=== PATIENT | male | born 1930 | race Caucasian/White ===

== ENCOUNTER 2019-09-04 15:00 | Inpatient (IN) | payer OTHER ==
[~2019-09-04] VITALS: Ht 162.6 cm; Wt 55.3 kg
[2019-09-04 15:02] VITALS: BP 118/82
[2019-09-04 16:32] LABS: BASOPHILS % (AUTO) 0.4 % (0.0-2.0); EOSINOPHILS # (AUTO) 0.1 K/uL (0-0.4); EOSINOPHILS % (AUTO) 1.4 % (0.0-4.0); HEMATOCRIT 29.4 % (36-52); HEMOGLOBIN 9.4 g/dL (12.0-18.0); LYMPHOCYTES # (AUTO) 1.7 K/uL (2.0-11.5); LYMPHOCYTES % (AUTO) 19.7 % (20.5-51.1); MEAN CORPUSCULAR HEMOGLOBIN 25 pg (27-31); MEAN CORPUSCULAR HGB CONC 32 g/dL (33-37); MEAN CORPUSCULAR VOLUME 78.7 fL (80-94); MONOCYTES # (AUTO) 0.8 K/uL (0.8-1.0); MONOCYTES % (AUTO) 9.3 % (1.7-9.3); NEUTROPHILS # (AUTO) 6.1 K/uL (1.8-7.7); NEUTROPHILS % (AUTO) 69.2 % (42.2-75.2); PLATELET COUNT (AUTO) 227 K/uL (140-450); RED BLOOD CELL COUNT(AUTO) 3.74 MIL/uL (4.20-6.10); RED CELL DISTRIBUTION WIDTH 20.6 % (11.6-13.7); WHITE BLOOD COUNT (AUTO) 8.7 K/uL (4.8-10.8)
[2019-09-04 16:38] LABS: BILIRUBIN,URINE NEGATIVE (NEGATIVE); BLOOD, URINE 3+ (NEGATIVE); COLOR,URINE YELLOW (YELLOW); LEUKOCYTE ESTERASE ,URINE 3+ (NEGATIVE); NITRITE, URINE NEGATIVE (NEGATIVE); UGLUCOSE NEGATIVE (NEGATIVE)
[2019-09-04 16:41] LABS: APPEARANCE,URINE HAZY (CLEAR)
[2019-09-04 16:51] LABS: ANION GAP 13.5 (8-16); CARBON DIOXIDE 26.7 mmol/L (21-32); CHLORIDE 99 mmol/L (98-107); CREATININE 1.9 mg/dL (0.6-1.3); GLUCOSE 126 mg/dL (74-106); POTASSIUM 4.2 mmol/L (3.5-5.1); SODIUM SERUM 135 mmol/L (136-145); UREA NITROGEN, BLOOD 22 mg/dL (7-18)
[2019-09-04 16:53] LABS: RBC,URINE >100 /HPF (0-5)
[2019-09-04 16:57] LABS: ALBUMIN 2.8 g/dL (3.4-5.0); ASPARTATE AMINOTRANSFERASE 27 U/L (15-37); TOTAL BILIRUBIN 0.2 mg/dL (0.0-1.0)
[2019-09-04] MEDS ORDERED: PIPERACILLIN/TAZOBACTAM 3.375 GM in DEXTROSE 5% 50 ML IV ONE (17:15)
[2019-09-04] MEDS ORDERED: PIPERACILLIN/TAZOBACTAM 3.375 GM VIAL IV ONE (17:18)
[2019-09-04] MEDS ORDERED: ACETAMINOPHEN 325 MG TAB PO PRN (17:25)
[2019-09-04] MEDS ORDERED: DOCUSATE SODIUM 100 MG GELCAP PO PRN (17:25)
[2019-09-04] MEDS ORDERED: ONDANSETRON 4 MG/2 ML VIAL IM/IVP PRN (17:25)
[2019-09-04] MEDS ORDERED: OMEP20TA56 PO (18:16)
[2019-09-04] MEDS ORDERED: FINA5TAB1 PO (18:16)
[2019-09-04] MEDS ORDERED: ASCO500T45 PO (18:16)
[2019-09-04] MEDS ORDERED: SIMV20TA1 PO (18:16)
[2019-09-04] MEDS ORDERED: INSU100S5 IJ (18:16)
[2019-09-04] MEDS ORDERED: DOCU-299 PO (18:16)
[2019-09-04] MEDS ORDERED: NACL 0.9% 2,000 ML IV ONE (18:25)
[2019-09-04 19:15] VITALS: BP_SYST 107; BP_SYST 118; BP_DIAS 67; BP_DIAS 90
[2019-09-04] MEDS: NACL 0.9% 1,000 ML IV SCH ×2 (19:15→23:32)
[2019-09-04 20:08] LABS: PROTHROMBIN TIME 9.4 secs (10.8-13.4)
[2019-09-04] MEDS ORDERED: LACTOBACILLUS ACIDOPHILUS PO SCH (21:00)
[2019-09-04] MEDS ORDERED: NON-FORMULARY ITEM (Cranberry Fruit Concentrate (Cranberry) 450 MG) PO SCH (21:00)
[2019-09-04 21:01] LABS: MAGNESIUM 2.1 mg/dL (1.8-2.4); PHOSPHORUS 3.5 mg/dL (2.5-4.9); THYROID STIMULATING HORMONE 3.82 uIU/mL (0.34-3.74)
[2019-09-04] MEDS ORDERED: LACT25CA PO (21:04)
[2019-09-04] MEDS ORDERED: SODI100076 PO (21:04)
[2019-09-04] MEDS ORDERED: CRAN450C PO (21:04)
[2019-09-04] MEDS ORDERED: NITROGLYCERIN 0.4 MG TAB SL PRN (21:05)
[2019-09-04] MEDS ORDERED: cefTRIAXone 1,000 MG VIAL ONE (22:01)
[2019-09-04] MEDS: ASCORBIC ACID 500 MG TAB PO SCH (23:32)
[2019-09-04] MEDS: SIMVASTATIN 20 MG TAB PO SCH (23:32)
[2019-09-04] MEDS: LEVOFLOXACIN 750 MG/D5W PREMIX 150 ML IV SCH (23:35)
[2019-09-04] MEDS: METOPROLOL 25 MG TAB PO SCH (23:40)
[2019-09-05] VITALS: BP_SYST 112; BP_SYST 117; BP_DIAS 64; BP_DIAS 67
[2019-09-05 04:00] VITALS: BP 110/66
[2019-09-05 08:00] VITALS: BP_SYST 121; BP_SYST 130; BP_DIAS 71; BP_DIAS 73
[2019-09-05] MEDS ORDERED: ALBUTEROL SULFATE/IPRATROPIU 3 ML SOL IH PRN ×2 (08:15→08:35)
[2019-09-05 08:20] LABS: MONOCYTES # (AUTO) 0.6 K/uL (0.8-1.0); NEUTROPHILS # (AUTO) 4.7 K/uL (1.8-7.7)
[2019-09-05] MEDS ORDERED: DEXTROSE 50% 50 ML SYR IVP PRN (08:30)
[2019-09-05 08:31] LABS: BASOPHILS % (AUTO) 0.5 % (0.0-2.0); EOSINOPHILS # (AUTO) 0.2 K/uL (0-0.4); EOSINOPHILS % (AUTO) 2.5 % (0.0-4.0); HEMATOCRIT 27.9 % (36-52); LYMPHOCYTES # (AUTO) 1.1 K/uL (2.0-11.5); LYMPHOCYTES % (AUTO) 17.4 % (20.5-51.1); MEAN CORPUSCULAR HGB CONC 32 g/dL (33-37); MEAN CORPUSCULAR VOLUME 78.2 fL (80-94); MONOCYTES % (AUTO) 8.5 % (1.7-9.3); NEUTROPHILS % (AUTO) 71.1 % (42.2-75.2); PLATELET COUNT (AUTO) 203 K/uL (140-450); RED CELL DISTRIBUTION WIDTH 20.2 % (11.6-13.7); WHITE BLOOD COUNT (AUTO) 6.6 K/uL (4.8-10.8)
[2019-09-05] MEDS: LACTOBACILLUS RHAMNOSUS GG 1 EACH CAP PO SCH (08:38)
[2019-09-05] MEDS: SODIUM CHLORIDE 1 GM TAB PO SCH (08:39)
[2019-09-05] MEDS: METOPROLOL 25 MG TAB PO SCH ×2 (08:39→21:00)
[2019-09-05] MEDS: ASCORBIC ACID 500 MG TAB PO SCH (08:39)
[2019-09-05] MEDS: PANTOPRAZOLE 40 MG TABEC PO SCH (08:39)
[2019-09-05] MEDS: FINASTERIDE 5 MG TAB PO SCH (08:40)
[2019-09-05] MEDS: LISINOPRIL 5 MG TAB PO SCH (08:40)
[2019-09-05] MEDS ORDERED: OMEPRAZOLE MAGNESIUM PO SCH (09:00)
[2019-09-05] MEDS ORDERED: ASPIRIN 81 MG TAB.CHEW PO SCH (09:00)
[2019-09-05 09:15] LABS: ANION GAP 10.2 (8-16); CARBON DIOXIDE 28.6 mmol/L (21-32); CHLORIDE 106 mmol/L (98-107); CREATININE 1.8 mg/dL (0.6-1.3); GLUCOSE 104 mg/dL (74-106); POTASSIUM 4.8 mmol/L (3.5-5.1); SODIUM SERUM 140 mmol/L (136-145); UREA NITROGEN, BLOOD 21 mg/dL (7-18)
[2019-09-05 09:27] LABS: MEAN CORPUSCULAR HEMOGLOBIN 25 pg (27-31)
[2019-09-05 09:28] LABS: RED BLOOD CELL COUNT(AUTO) 3.56 MIL/uL (4.20-6.10)
[2019-09-05 09:39] LABS: CHOL/HDL RATIO 4.5 (1-4.5); MAGNESIUM 2.1 mg/dL (1.8-2.4); PHOSPHORUS 3.5 mg/dL (2.5-4.9)
[2019-09-05] MEDS ORDERED: SODIUM FERRIC GLUCONATE 125 MG in NACL 0.9% 100 ML IV SCH (11:00)
[2019-09-05] MEDS: BLOOD GLUCOSE MONITORING 1 DEV DEV FS SCH ×3 (11:09→20:29)
[2019-09-05 12:00] VITALS: BP 130/71
[2019-09-05] MEDS ORDERED: ALBUTEROL SULFATE/IPRATROPIU 3 ML SOL IH SCH (12:00)
[2019-09-05] MEDS: ALBUTEROL SULFATE/IPRATROPIU 3 ML SOL IH SCH ×2 (13:00→21:01)
[2019-09-05] MEDS: metroNIDAZOLE 500 MG/NS PREMIX 100 ML IV SCH ×2 (13:13→20:30)
[2019-09-05 16:00] VITALS: BP 109/63
[2019-09-05] MEDS: INSULIN LISPRO SLIDING SCALE 100 UNITS/ML VIAL SUBQ PRN (16:56)
[2019-09-05] MEDS: NACL 0.9% 1,000 ML IV SCH ×2 (17:02→23:55)
[2019-09-05 20:00] VITALS: BP 112/59
[2019-09-05] MEDS: SIMVASTATIN 20 MG TAB PO SCH (20:31)
[2019-09-06] VITALS: BP 100/60
[2019-09-06 04:00] VITALS: BP 105/60
[2019-09-06] MEDS: metroNIDAZOLE 500 MG/NS PREMIX 100 ML IV SCH ×3 (04:16→22:11)
[2019-09-06] MEDS: NACL 0.9% 1,000 ML IV SCH (04:17)
[2019-09-06] MEDS: BLOOD GLUCOSE MONITORING 1 DEV DEV FS SCH ×4 (06:16→21:00)
[2019-09-06 06:17] LABS: BASOPHILS % (AUTO) 0.4 % (0.0-2.0); EOSINOPHILS # (AUTO) 0.2 K/uL (0-0.4); EOSINOPHILS % (AUTO) 2.2 % (0.0-4.0); HEMATOCRIT 26.1 % (36-52); HEMOGLOBIN 8.4 g/dL (12.0-18.0); LYMPHOCYTES # (AUTO) 1.6 K/uL (2.0-11.5); LYMPHOCYTES % (AUTO) 20.8 % (20.5-51.1); MEAN CORPUSCULAR HEMOGLOBIN 25 pg (27-31); MEAN CORPUSCULAR HGB CONC 32 g/dL (33-37); MEAN CORPUSCULAR VOLUME 78.7 fL (80-94); MONOCYTES # (AUTO) 0.7 K/uL (0.8-1.0); MONOCYTES % (AUTO) 8.9 % (1.7-9.3); NEUTROPHILS # (AUTO) 5.1 K/uL (1.8-7.7); NEUTROPHILS % (AUTO) 67.7 % (42.2-75.2); PLATELET COUNT (AUTO) 207 K/uL (140-450); RED BLOOD CELL COUNT(AUTO) 3.32 MIL/uL (4.20-6.10); RED CELL DISTRIBUTION WIDTH 20.5 % (11.6-13.7); WHITE BLOOD COUNT (AUTO) 7.6 K/uL (4.8-10.8)
[2019-09-06 06:28] LABS: MAGNESIUM 1.8 mg/dL (1.8-2.4); PHOSPHORUS 3.3 mg/dL (2.5-4.9)
[2019-09-06 06:34] LABS: ANION GAP 10.9 (8-16); CARBON DIOXIDE 26.9 mmol/L (21-32); CHLORIDE 106 mmol/L (98-107); CREATININE 1.5 mg/dL (0.6-1.3); GLUCOSE 117 mg/dL (74-106); POTASSIUM 3.8 mmol/L (3.5-5.1); SODIUM SERUM 140 mmol/L (136-145); UREA NITROGEN, BLOOD 20 mg/dL (7-18)
[2019-09-06 07:07] LABS: FOLIC ACID 5.9 ng/mL (>3.0)
[2019-09-06] MEDS: ALBUTEROL SULFATE/IPRATROPIU 3 ML SOL IH SCH ×3 (07:15→19:35)
[2019-09-06 08:00] VITALS: BP 133/65
[2019-09-06] MEDS: FERROUS SULFATE 325 MG TABEC PO SCH (08:00)
[2019-09-06] MEDS: FINASTERIDE 5 MG TAB PO SCH (09:00)
[2019-09-06] MEDS: SODIUM CHLORIDE 1 GM TAB PO SCH (09:00)
[2019-09-06] MEDS: LISINOPRIL 5 MG TAB PO SCH (09:00)
[2019-09-06] MEDS: METOPROLOL 25 MG TAB PO SCH ×2 (09:00→21:00)
[2019-09-06] MEDS: LACTOBACILLUS RHAMNOSUS GG 1 EACH CAP PO SCH (09:00)
[2019-09-06] MEDS: ASCORBIC ACID 500 MG TAB PO SCH (09:00)
[2019-09-06] MEDS: PANTOPRAZOLE 40 MG TABEC PO SCH (09:00)
[2019-09-06 12:00] VITALS: BP 118/69
[2019-09-06 16:00] VITALS: BP 123/70
[2019-09-06 20:00] VITALS: BP 100/58
[2019-09-06] MEDS: INSULIN LISPRO SLIDING SCALE 100 UNITS/ML VIAL SUBQ PRN (22:11)
[2019-09-06] MEDS: SIMVASTATIN 20 MG TAB PO SCH (22:12)
[2019-09-06] MEDS: DEXT 5% /NACL 0.9% 1,000 ML IV SCH (22:19)
[2019-09-06] MEDS: LEVOFLOXACIN 750 MG/D5W PREMIX 150 ML IV SCH (23:10)
[2019-09-07] VITALS: BP 112/62
[2019-09-07] MEDS: DEXT 5% /NACL 0.9% 1,000 ML IV SCH ×2 (01:59→17:39)
[2019-09-07 04:00] VITALS: BP 119/76
[2019-09-07] MEDS: metroNIDAZOLE 500 MG/NS PREMIX 100 ML IV SCH ×3 (04:10→20:28)
[2019-09-07] MEDS: BLOOD GLUCOSE MONITORING 1 DEV DEV FS SCH ×4 (06:06→20:28)
[2019-09-07 06:20] LABS: ANION GAP 13.5 (8-16); CARBON DIOXIDE 26.5 mmol/L (21-32); CHLORIDE 104 mmol/L (98-107); CREATININE 1.5 mg/dL (0.6-1.3); GLUCOSE 115 mg/dL (74-106); SODIUM SERUM 140 mmol/L (136-145); UREA NITROGEN, BLOOD 18 mg/dL (7-18)
[2019-09-07 06:21] LABS: MAGNESIUM 1.7 mg/dL (1.8-2.4)
[2019-09-07 06:29] LABS: BASOPHILS # (AUTO) 0.1 K/uL (0.00-0.22); BASOPHILS % (AUTO) 0.7 % (0.0-2.0); EOSINOPHILS # (AUTO) 0.2 K/uL (0-0.4); EOSINOPHILS % (AUTO) 2.1 % (0.0-4.0); HEMATOCRIT 26.8 % (36-52); HEMOGLOBIN 8.5 g/dL (12.0-18.0); LYMPHOCYTES # (AUTO) 1.4 K/uL (2.0-11.5); LYMPHOCYTES % (AUTO) 17.1 % (20.5-51.1); MEAN CORPUSCULAR HEMOGLOBIN 25 pg (27-31); MEAN CORPUSCULAR HGB CONC 32 g/dL (33-37); MEAN CORPUSCULAR VOLUME 79.1 fL (80-94); MONOCYTES # (AUTO) 0.9 K/uL (0.8-1.0); MONOCYTES % (AUTO) 10.3 % (1.7-9.3); NEUTROPHILS # (AUTO) 5.9 K/uL (1.8-7.7); NEUTROPHILS % (AUTO) 69.8 % (42.2-75.2); PLATELET COUNT (AUTO) 230 K/uL (140-450); RED BLOOD CELL COUNT(AUTO) 3.38 MIL/uL (4.20-6.10); RED CELL DISTRIBUTION WIDTH 20.5 % (11.6-13.7); WHITE BLOOD COUNT (AUTO) 8.4 K/uL (4.8-10.8)
[2019-09-07] MEDS: ALBUTEROL SULFATE/IPRATROPIU 3 ML SOL IH SCH ×3 (07:49→20:38)
[2019-09-07 08:00] VITALS: BP 110/74
[2019-09-07] MEDS: FERROUS SULFATE 325 MG TABEC PO SCH (08:25)
[2019-09-07] MEDS: ASCORBIC ACID 500 MG TAB PO SCH (08:26)
[2019-09-07] MEDS: LACTOBACILLUS RHAMNOSUS GG 1 EACH CAP PO SCH (08:26)
[2019-09-07] MEDS: SODIUM CHLORIDE 1 GM TAB PO SCH (08:26)
[2019-09-07] MEDS: PANTOPRAZOLE 40 MG TABEC PO SCH (08:26)
[2019-09-07] MEDS: METOPROLOL 25 MG TAB PO SCH ×2 (08:27→20:28)
[2019-09-07] MEDS: LISINOPRIL 5 MG TAB PO SCH (08:27)
[2019-09-07] MEDS: FINASTERIDE 5 MG TAB PO SCH (08:28)
[2019-09-07] MEDS: INSULIN LISPRO SLIDING SCALE 100 UNITS/ML VIAL SUBQ PRN ×3 (11:59→20:34)
[2019-09-07 12:00] VITALS: BP 114/72
[2019-09-07 16:00] VITALS: BP 101/57
[2019-09-07] MEDS: SIMVASTATIN 20 MG TAB PO SCH (20:28)
[2019-09-08] VITALS: BP 129/76
[2019-09-08] MEDS: metroNIDAZOLE 500 MG/NS PREMIX 100 ML IV SCH ×3 (04:04→20:40)
[2019-09-08] MEDS: BLOOD GLUCOSE MONITORING 1 DEV DEV FS SCH ×4 (06:15→20:37)
[2019-09-08] MEDS: ALBUTEROL SULFATE/IPRATROPIU 3 ML SOL IH SCH ×3 (07:09→19:57)
[2019-09-08 08:00] VITALS: BP 96/53
[2019-09-08 08:02] LABS: BASOPHILS % (AUTO) 0.3 % (0.0-2.0); EOSINOPHILS # (AUTO) 0.2 K/uL (0-0.4); EOSINOPHILS % (AUTO) 1.7 % (0.0-4.0); HEMOGLOBIN 8.6 g/dL (12.0-18.0); LYMPHOCYTES # (AUTO) 2.1 K/uL (2.0-11.5); LYMPHOCYTES % (AUTO) 21.9 % (20.5-51.1); MEAN CORPUSCULAR HEMOGLOBIN 26 pg (27-31); MEAN CORPUSCULAR HGB CONC 32 g/dL (33-37); MONOCYTES # (AUTO) 0.9 K/uL (0.8-1.0); MONOCYTES % (AUTO) 9.6 % (1.7-9.3); NEUTROPHILS # (AUTO) 6.2 K/uL (1.8-7.7); NEUTROPHILS % (AUTO) 66.5 % (42.2-75.2); PLATELET COUNT (AUTO) 210 K/uL (140-450); RED BLOOD CELL COUNT(AUTO) 3.37 MIL/uL (4.20-6.10); RED CELL DISTRIBUTION WIDTH 20.7 % (11.6-13.7); WHITE BLOOD COUNT (AUTO) 9.4 K/uL (4.8-10.8)
[2019-09-08] MEDS: FERROUS SULFATE 325 MG TABEC PO SCH (08:09)
[2019-09-08] MEDS: LACTOBACILLUS RHAMNOSUS GG 1 EACH CAP PO SCH (08:10)
[2019-09-08] MEDS: FINASTERIDE 5 MG TAB PO SCH (08:10)
[2019-09-08] MEDS: SODIUM CHLORIDE 1 GM TAB PO SCH (08:11)
[2019-09-08] MEDS: PANTOPRAZOLE 40 MG TABEC PO SCH (08:11)
[2019-09-08] MEDS: ASCORBIC ACID 500 MG TAB PO SCH (08:12)
[2019-09-08] MEDS: LISINOPRIL 5 MG TAB PO SCH (08:14)
[2019-09-08] MEDS: METOPROLOL 25 MG TAB PO SCH ×2 (08:14→20:38)
[2019-09-08 08:25] LABS: MAGNESIUM 1.8 mg/dL (1.8-2.4); PHOSPHORUS 3.1 mg/dL (2.5-4.9)
[2019-09-08 08:38] LABS: ANION GAP 12.1 (8-16); CARBON DIOXIDE 27.3 mmol/L (21-32); CHLORIDE 106 mmol/L (98-107); CREATININE 1.7 mg/dL (0.6-1.3); GLUCOSE 145 mg/dL (74-106); POTASSIUM 4.4 mmol/L (3.5-5.1); SODIUM SERUM 141 mmol/L (136-145); UREA NITROGEN, BLOOD 22 mg/dL (7-18)
[2019-09-08] MEDS: DEXT 5% /NACL 0.9% 1,000 ML IV SCH (12:11)
[2019-09-08 16:00] VITALS: BP 102/56
[2019-09-08] MEDS: SIMVASTATIN 20 MG TAB PO SCH (20:37)
[2019-09-08] MEDS: LEVOFLOXACIN 750 MG/D5W PREMIX 150 ML IV SCH (21:41)
[2019-09-09] VITALS: BP 101/64
[2019-09-09] MEDS: DEXT 5% /NACL 0.9% 1,000 ML IV SCH (03:59)
[2019-09-09] MEDS: metroNIDAZOLE 500 MG/NS PREMIX 100 ML IV SCH (04:37)
[2019-09-09] MEDS: BLOOD GLUCOSE MONITORING 1 DEV DEV FS SCH ×2 (06:09→11:30)
[2019-09-09 06:44] LABS: CHLORIDE 105 mmol/L (98-107); CREATININE 1.5 mg/dL (0.6-1.3); GLUCOSE 122 mg/dL (74-106); SODIUM SERUM 140 mmol/L (136-145); UREA NITROGEN, BLOOD 18 mg/dL (7-18)
[2019-09-09 06:50] LABS: MAGNESIUM 1.6 mg/dL (1.8-2.4); PHOSPHORUS 3.2 mg/dL (2.5-4.9)
[2019-09-09 06:54] LABS: BASOPHILS # (AUTO) 0.1 K/uL (0.00-0.22); BASOPHILS % (AUTO) 0.5 % (0.0-2.0); EOSINOPHILS # (AUTO) 0.2 K/uL (0-0.4); EOSINOPHILS % (AUTO) 1.6 % (0.0-4.0); HEMOGLOBIN 8.5 g/dL (12.0-18.0); LYMPHOCYTES # (AUTO) 1.3 K/uL (2.0-11.5); LYMPHOCYTES % (AUTO) 12.8 % (20.5-51.1); MEAN CORPUSCULAR HEMOGLOBIN 26 pg (27-31); MEAN CORPUSCULAR HGB CONC 33 g/dL (33-37); MEAN CORPUSCULAR VOLUME 80.1 fL (80-94); MONOCYTES # (AUTO) 1.1 K/uL (0.8-1.0); MONOCYTES % (AUTO) 10.7 % (1.7-9.3); NEUTROPHILS # (AUTO) 7.6 K/uL (1.8-7.7); NEUTROPHILS % (AUTO) 74.4 % (42.2-75.2); PLATELET COUNT (AUTO) 216 K/uL (140-450); RED BLOOD CELL COUNT(AUTO) 3.24 MIL/uL (4.20-6.10); RED CELL DISTRIBUTION WIDTH 20.7 % (11.6-13.7); WHITE BLOOD COUNT (AUTO) 10.2 K/uL (4.8-10.8)
[2019-09-09] MEDS: ALBUTEROL SULFATE/IPRATROPIU 3 ML SOL IH SCH (07:35)
[2019-09-09 08:00] VITALS: BP 126/75
[2019-09-09] MEDS ORDERED: MAGNESIUM OXIDE 400 MG TAB PO SCH (09:00)
[2019-09-09] MEDS ORDERED: AMOX-999 PO (09:12)
[2019-09-09] MEDS ORDERED: LACT10CA PO (09:12)
[2019-09-09] MEDS ORDERED: FER325 PO (09:12)
[2019-09-09] MEDS ORDERED: HEPA500056 SUBQ (09:17)
[2019-09-09] MEDS: LACTOBACILLUS RHAMNOSUS GG 1 EACH CAP PO SCH (09:55)
[2019-09-09] MEDS: SODIUM CHLORIDE 1 GM TAB PO SCH (09:55)
[2019-09-09] MEDS: LISINOPRIL 5 MG TAB PO SCH (09:56)
[2019-09-09] MEDS: FINASTERIDE 5 MG TAB PO SCH (09:56)
[2019-09-09] MEDS: METOPROLOL 25 MG TAB PO SCH (09:57)
[2019-09-09] MEDS: PANTOPRAZOLE 40 MG TABEC PO SCH (09:57)
[2019-09-09] MEDS: ASCORBIC ACID 500 MG TAB PO SCH (09:57)
[2019-09-09] MEDS: FERROUS SULFATE 325 MG TABEC PO SCH (10:06)
== END 2019-09-09 12:40 | DRG 177 ==
LOC: MED 15:00 → MTU 17:23
PROVIDERS: ADMIT General Practice; ATTEND General Practice
DX: J69.0 Pneumonitis due to inhalation of food and vomit (principal); N17.0 Acute kidney failure with tubular necrosis; G93.41 Metabolic encephalopathy; R65.20 Severe sepsis without septic shock; E44.0 Moderate protein-calorie malnutrition; N12 Tubulo-interstitial nephritis, not specified as acute or chronic; E87.1 Hypo-osmolality and hyponatremia; D50.9 Iron deficiency anemia, unspecified; E11.22 Type 2 diabetes mellitus with diabetic chronic kidney disease; E78.5 Hyperlipidemia, unspecified; I12.9 Hypertensive chronic kidney disease with stage 1 through stage 4 chronic kidney disease, or unspecified chronic kidney disease; I48.91 Unspecified atrial fibrillation; D63.0 Anemia in neoplastic disease; K21.9 Gastro-esophageal reflux disease without esophagitis; Y83.8 Other surgical procedures as the cause of abnormal reaction of the patient, or of later complication, without mention of misadventure at the time of the procedure; N99.520 Hemorrhage of incontinent external stoma of urinary tract; N18.9 Chronic kidney disease, unspecified; Z66 Do not resuscitate; Z85.51 Personal history of malignant neoplasm of bladder; Z88.6 Allergy status to analgesic agent; Z68.20 Body mass index [BMI] 20.0-20.9, adult; Z79.899 Other long term (current) drug therapy
CPT/HCPCS: 36415; 36600; 70450; 71045; 76770; 80048; 80053; 81001; 82140; 82150; 82272; 82607; 82728; 82746; 82803; 82948; 83036; 83540; 83605; 83690; 83735; 83880; 84100; 84134; 84443; 84484; 85025; 85045; 85610; 85730; 87040; 87081; 87086; 92610; 93005; 93925; 93970; 94640; 96365; 97110; 97112; 97116; 97161-GP; 97530; 99285; J0696; J1644; J1815; J1956; J2543; J2916; J3490; J7030; J7042; J7060; Q0092

== ENCOUNTER 2019-09-15 18:11 | Inpatient (IN) | payer OTHER ==
[~2019-09-15] VITALS: Ht 175.3 cm; Wt 81.6 kg
[~2019-09-15 18:11] MED LIST: AMOX-999 PO; ASCO500T45 PO; CRAN450C PO; DOCU-299 PO; FER325 PO; FINA5TAB1 PO; INSU100S5 IJ; LACT10CA PO; LACT25CA PO; OMEP20TA56 PO; SIMV20TA1 PO; SODI100076 PO
[2019-09-15 18:13] VITALS: BP 124/85
--- NOTE | 2019-09-15 18:42 | NUR ---
BIBA ACLS FROM [facility] NOTED FOR CHANGE IN LOC THIS AM .PT RESPONSE TO VOICE , SCE , CBS BLF , FLAT SOFT NABS , DRAIN NOTED WITH DRAIN BAG WITH STRAW COLORED DRAIN . PMHX BLADDER CA , DM .
--- NOTE | 2019-09-15 19:03 | NUR ---
XRAY AT BEDSIDE.
--- NOTE | 2019-09-15 19:23 | NUR ---
gave report to chary sesay.
--- NOTE | 2019-09-15 19:25 | NUR ---
RECIEVED REPORT FROM ROBLES DAILY. ASSUMED CARE OF PATIENT AT THIS TIME. PT LAYING IN BED SUPINE. RR EVEN AND UNLABORED. O2 SAT MAINTAINED AT 98% RA. BED IN LOWEST POSITION. SAFETY MEASURES IN PLACE. WILL CONTINUE TO MONITOR.
--- NOTE | 2019-09-15 19:37 | NUR ---
PT TAKEN TO CT VIA [facility].
--- NOTE | 2019-09-15 19:40 | NUR ---
URINE SAMPLE COLLECTED FROM PTS NEPHROSTOMY BAG
--- NOTE | 2019-09-15 19:47 | NUR ---
PT RETURNED FROM CT.
--- NOTE | 2019-09-15 20:16 | NUR ---
BLOOD DRAWN AND GIVEN TO LAB.
[2019-09-15 20:23] LABS: BASOPHILS % (AUTO) 0.5 % (0.0-2.0); EOSINOPHILS # (AUTO) 0.1 K/uL (0-0.4); EOSINOPHILS % (AUTO) 1.8 % (0.0-4.0); HEMATOCRIT 29.8 % (36-52); HEMOGLOBIN 9.5 g/dL (12.0-18.0); LYMPHOCYTES # (AUTO) 2.2 K/uL (2.0-11.5); LYMPHOCYTES % (AUTO) 29.5 % (20.5-51.1); MEAN CORPUSCULAR HEMOGLOBIN 26 pg (27-31); MEAN CORPUSCULAR HGB CONC 32 g/dL (33-37); MEAN CORPUSCULAR VOLUME 82.3 fL (80-94); MONOCYTES # (AUTO) 0.8 K/uL (0.8-1.0); MONOCYTES % (AUTO) 10.1 % (1.7-9.3); NEUTROPHILS # (AUTO) 4.4 K/uL (1.8-7.7); NEUTROPHILS % (AUTO) 58.1 % (42.2-75.2); PLATELET COUNT (AUTO) 244 K/uL (140-450); RED BLOOD CELL COUNT(AUTO) 3.62 MIL/uL (4.20-6.10); RED CELL DISTRIBUTION WIDTH 22.1 % (11.6-13.7); WHITE BLOOD COUNT (AUTO) 7.6 K/uL (4.8-10.8)
--- NOTE | 2019-09-15 20:36 | NUR ---
PT RESTING IN POSITION OF COMFORT. BED LOW AND LOCKED, 2 SIDERAILS UP.VSS . RR EVEN AND UNLABORED. WILL CONTINUE TO MONITOR.
[2019-09-15 20:37] LABS: ALBUMIN 2.7 g/dL (3.4-5.0); ANION GAP 9.5 (8-16); ASPARTATE AMINOTRANSFERASE 32 U/L (15-37); CARBON DIOXIDE 30.8 mmol/L (21-32); CHLORIDE 100 mmol/L (98-107); CREATININE 1.6 mg/dL (0.6-1.3); GLUCOSE 123 mg/dL (74-106); POTASSIUM 4.3 mmol/L (3.5-5.1); SODIUM SERUM 136 mmol/L (136-145); TOTAL BILIRUBIN 0.2 mg/dL (0.0-1.0); UREA NITROGEN, BLOOD 22 mg/dL (7-18)
[2019-09-15 20:39] LABS: ACETAMINOPHEN < 0.5 ug/ml (10-30); SALICYLATE < 2.8 mg/dL (2.8-20.0)
--- NOTE | 2019-09-15 21:20 | NUR ---
PT'S SON PHONED AND ASKED FOR AN UPDATE
[2019-09-15 21:36] LABS: APPEARANCE,URINE HAZY (CLEAR); BILIRUBIN,URINE NEGATIVE (NEGATIVE); BLOOD, URINE 3+ (NEGATIVE); COLOR,URINE YELLOW (YELLOW); LEUKOCYTE ESTERASE ,URINE 3+ (NEGATIVE); NITRITE, URINE NEGATIVE (NEGATIVE); UGLUCOSE NEGATIVE (NEGATIVE)
[2019-09-15 21:45] LABS: BARBITURATE, URINE NEGATIVE ng/ml (NEG <=200); BENZODIAZEPINE, URINE NEGATIVE ng/mL (NEG <=200); CANNABINOID, URINE NEGATIVE ng/mL (NEG <=50); COCAINE, URINE NEGATIVE ng/mL (NEG <=300); OPIATE, URINE NEGATIVE ng/mL (NEG <=2000); PHENCYCLIDINE SCREEN,URINE NEGATIVE ng/mL (NEG <=25)
[2019-09-15] MEDS ORDERED: cefTRIAXone 2,000 MG in DEXTROSE 5% 100 ML IV ONE (21:45)
--- NOTE | 2019-09-15 21:47 | NUR ---
PHONED PT'S SON (JULIA) AND INFORMED HIM THAT THE PT IS BEING ADMITTED TO THE HOSPITAL
[2019-09-15 21:49] LABS: RBC,URINE 80-100 /HPF (0-5); WBC,URINE 60-80 /HPF (0-5)
[2019-09-15] MEDS ORDERED: cefTRIAXone 2,000 MG VIAL ONE (21:51)
[2019-09-15] MEDS ORDERED: ONDANSETRON 4 MG/2 ML VIAL IVP PRN (22:25)
[2019-09-15] MEDS ORDERED: ACETAMINOPHEN 325 MG TAB PO PRN (22:25)
--- NOTE | 2019-09-15 22:31 | NUR ---
RIGHT NEPHROSTOMY BAG DRAINED--500CC OF YELLOW OUTPUT NOTED. LEFT NEPHROSTOMY BAG IS EMPTY AT THIS TIME, SO NOTHING TO DRAIN. PT RESTING IN POSITION OF COMFORT. BED LOW AND LOCKED. 2 SIDERAILS UP. VSS . WILL CONTINUE TO MONITOR.
[2019-09-15 23:15] VITALS: BP 123/77
--- NOTE | 2019-09-15 23:15 | NUR ---
Patient will be admitted to care of . Admited to [facility]. Will go to room 121A. Belongings list completed. Report GIVEN to ROBLES SILVA. TRANSFER OF CARE AT THIS TIME.
--- NOTE | 2019-09-15 23:15 | NUR ---
PATIENT ARRIVED FROM ED VIA GURNEY. ENDORSED BY ED NURSE. PATIENT AOX2. NON-AMBULATORY. WITH G20 IV ON L WRIST. NEPHROSTOMY TUBE PRESENT ON LEFT AND RIGHT SIDE. VITAL SIGNS ARE STABLE. SKIN IS INTACT. SKIN WARM AND DRY. LUNG SOUNDS ARE CLEAR. RESPIRATIONS EVEN AND UNLABORED. ABDOMINAL SOUNDS PRESENT ON ALL QUADRANTS. DENIES PAIN AT THIS TIME. ORIENTED TO ROOM AND PROCEDURES. MRSA SWAB COLLECTED. BELONGINGS KEPT AT BEDSIDE. FALL AND SAFETY PRECAUTIONS IN PLACE. BED IN LOW POSITION, SIDE RAILS RAISED, BED ALARM ON, CALL LIGHT WITHIN REACH. KEPT COMFORTABLE. PLAN OF CARE DISCUSSED. WILL CONTINUE TO MONITOR.
--- NOTE | 2019-09-15 23:40 | NUR ---
CALLED [facility] AND SPOKE WITH JAY ([employer] FEEDER). OBTAINED PATIENT HISTORY AND BACKGROUND.
[2019-09-16] MEDS: NACL 0.9% 1,000 ML IV SCH ×4 (00:01→23:48)
[2019-09-16 00:14] LABS: FREE T4 (FREE THYROXINE) 0.93 ng/dL (0.76-1.46); MAGNESIUM 2.1 mg/dL (1.8-2.4); PHOSPHORUS 3.7 mg/dL (2.5-4.9); THYROID STIMULATING HORMONE 4.31 uIU/mL (0.34-3.74)
[2019-09-16 00:19] LABS: PROTHROMBIN TIME 9.5 secs (10.8-13.4)
[2019-09-16] MEDS ORDERED: LEVOFLOXACIN 750 MG/D5W PREMIX 150 ML IV SCH (01:20)
[2019-09-16] MEDS ORDERED: FERR325E14 PO (01:54)
[2019-09-16] MEDS ORDERED: LACT25CA PO (01:54)
[2019-09-16] MEDS ORDERED: FINA5TAB1 PO (01:54)
--- NOTE | 2019-09-16 02:11 | NUR ---
ROUNDS DONE. PATIENT IN BED SLEEPING. NO SIGNS OF DISTRESS NOTED. IVF INFUSING WELL. SAFETY MEASURES IN PLACE. BED IN LOW POSITION, SIDE RAILS RAISED, BED ALARM ON, CALL LIGHT WITHIN REACH. KEPT COMFORTABLE. WILL CONTINUE TO MONITOR.
[2019-09-16] MEDS ORDERED: DEXTROSE 50% 50 ML SYR IVP PRN (02:35)
--- NOTE | 2019-09-16 04:03 | NUR ---
PATIENT LYING IN BED SLEEPING. NO SIGNS OF DISTRESS NOTED. IVF INFUSING WELL. SAFETY MEASURES IN PLACE. WILL CONTINUE TO MONITOR.
[2019-09-16] MEDS: BLOOD GLUCOSE MONITORING 1 DEV DEV FS SCH ×4 (06:10→21:13)
--- NOTE | 2019-09-16 07:15 | NUR ---
RECEIVED REPORT FROM DAY SHIFT VIVIAN. PT RESTING IN BED, AOX2, SPEAKS ARABIC AND VERY LITTLE IRISH, WHEELCHAIR BOUND. DISCUSSED PLAN OF CARE AND PT VERBALIZED UNDERSTANDING. IV SITE ON LEFT WRIST #20G RUNNING NS @ 100ML/HR. LEFT AND RIGHT NEPHRO TUBE. NO S/S OF RESPIRATORY DISTRESS OR DISCOMFORT NOTED AT THIS TIME. WILL CONTINUE TO MONITOR.
--- NOTE | 2019-09-16 07:15 | NUR ---
ENDORSED PATIENT TO DAY SHIFT NURSE. PLAN OF CARE DISCUSSED. PATIENT IN BED RESTING. NO SIGNS AND SYMPTOMS OF DISTRESS NOTED. PATIENT IN STABLE CONDITION.
[2019-09-16 07:23] LABS: BASOPHILS % (AUTO) 0.4 % (0.0-2.0); EOSINOPHILS # (AUTO) 0.1 K/uL (0-0.4); EOSINOPHILS % (AUTO) 1.3 % (0.0-4.0); HEMATOCRIT 29.7 % (36-52); HEMOGLOBIN 9.8 g/dL (12.0-18.0); LYMPHOCYTES # (AUTO) 1.1 K/uL (2.0-11.5); LYMPHOCYTES % (AUTO) 11.5 % (20.5-51.1); MEAN CORPUSCULAR HEMOGLOBIN 27 pg (27-31); MEAN CORPUSCULAR HGB CONC 33 g/dL (33-37); MEAN CORPUSCULAR VOLUME 82.1 fL (80-94); MONOCYTES # (AUTO) 0.6 K/uL (0.8-1.0); NEUTROPHILS # (AUTO) 8.1 K/uL (1.8-7.7); NEUTROPHILS % (AUTO) 80.8 % (42.2-75.2); PLATELET COUNT (AUTO) 238 K/uL (140-450); RED BLOOD CELL COUNT(AUTO) 3.62 MIL/uL (4.20-6.10); RED CELL DISTRIBUTION WIDTH 21.8 % (11.6-13.7)
[2019-09-16 07:28] LABS: ANION GAP 11.3 (8-16); CARBON DIOXIDE 29.6 mmol/L (21-32); CHLORIDE 102 mmol/L (98-107); CREATININE 1.6 mg/dL (0.6-1.3); GLUCOSE 125 mg/dL (74-106); POTASSIUM 4.9 mmol/L (3.5-5.1); SODIUM SERUM 138 mmol/L (136-145); UREA NITROGEN, BLOOD 20 mg/dL (7-18)
[2019-09-16 07:40] LABS: MAGNESIUM 2.1 mg/dL (1.8-2.4); PHOSPHORUS 3.2 mg/dL (2.5-4.9)
[2019-09-16 08:00] VITALS: BP 110/72
[2019-09-16] MEDS ORDERED: NON-FORMULARY ITEM (Cranberry Fruit Concentrate (Cranberry) 450 MG) PO SCH (09:00)
[2019-09-16] MEDS ORDERED: LACTOBACILLUS ACIDOPHILUS PO SCH (09:00)
[2019-09-16] MEDS ORDERED: OMEPRAZOLE MAGNESIUM PO SCH (09:00)
--- NOTE | 2019-09-16 09:42 | NUR ---
PATIENT HAS BEEN SCREENED AND CATEGORIZED MODERATE NUTRITION RISK. PATIENT WILL BE SEEN WITHIN 3-5 DAYS OF ADMISSION. 09/18/2019-09/20/[address]
[2019-09-16] MEDS: LEVOFLOXACIN 750 MG/D5W PREMIX 150 ML IV SCH (10:01)
[2019-09-16] MEDS: DOCUSATE SODIUM 100 MG GELCAP PO SCH ×2 (10:01→21:04)
[2019-09-16] MEDS: LACTOBACILLUS RHAMNOSUS GG 1 EACH CAP PO SCH (10:02)
[2019-09-16] MEDS: ASCORBIC ACID 500 MG TAB PO SCH ×2 (10:02→21:04)
[2019-09-16] MEDS: FERROUS SULFATE 325 MG TABEC PO SCH (10:02)
[2019-09-16] MEDS: SODIUM CHLORIDE 1 GM TAB PO SCH (10:03)
[2019-09-16] MEDS: PANTOPRAZOLE 40 MG TABEC PO SCH (10:03)
[2019-09-16] MEDS: FINASTERIDE 5 MG TAB PO SCH (10:04)
--- NOTE | 2019-09-16 10:04 | NUR ---
SCHEDULED MEDICATIONS GIVEN. PT REFUSED HEPARIN SUBQ DR JOSEPHINE HUBER AWARE. PT TOLERATED MEDICATIONS WELL. NO S/S OF RESPIRATORY DISTRESS OR DISCOMFORT NOTED AT THIS TIME. WILL CONTINUE TO MONITOR.
[2019-09-16] MEDS ORDERED: MECLIZINE 25 MG TAB PO PRN (10:10)
--- NOTE | 2019-09-16 11:30 | NUR ---
BLOOD GLUCOSE 128- NO INSULIN COVERAGE NEEDED. NO S/S OF RESPIRATORY DISTRESS OR DISCOMFORT NOTED AT THIS TIME. WILL CONTINUE TO MONITOR.
--- NOTE | 2019-09-16 13:00 | NUR ---
PT RESTING IN BED SLEEPING. NO S/S OF RESPIRATORY DISTRESS OR DISCOMFORT NOTED AT THIS TIME. WILL CONTINUE TO MONITOR.
--- NOTE | 2019-09-16 14:00 | NUR ---
ORTHOSTATIC BP UNABLE TO COMPLETE DUE TO PT GENERALIZED WEAKNESS.
[2019-09-16 16:00] VITALS: BP 102/72
--- NOTE | 2019-09-16 16:30 | NUR ---
BLOOD GLUCOSE 152
--- NOTE | 2019-09-16 17:00 | NUR ---
PT REFUSING INSULIN COVERAGE STATING "NO" AND MOVING ARM AWAY. INSULIN COVERAGE NOT GIVEN.
--- NOTE | 2019-09-16 18:55 | NUR ---
NEPHRO TUBE OUTPUT: LEFT 30ML/ RIGHT 90ML
--- NOTE | 2019-09-16 19:15 | NUR ---
RECEIVED REPORT FROM DAY SHIFT NURSE. DISCUSSED PLAN OF CARE. PATIENT LYING IN BED RESTING WITH HOB SLIGHTLY ELEVATED. NOTED WITH GENERALIZED WEAKNESS. RESPIRATIONS EVEN AND UNLABORED. SKIN IS WARM AND DRY. IVF PATENT AND INFUSING WELL. BILATERAL NEPHROSTOMY TUBE IN PLACE AND DRAINING WELL. NO SIGNS OF INFECTION NOTED. NO SIGNS AND SYMPTOMS OF DISTRESS NOTED AT THIS TIME. PATIENT KEPT COMFORTABLE. SAFETY MEASURES IN PLACE. BED IN LOW POSITION, SIDE RAILS RAISED, BED ALARM ON, CALL LIGHT WITHIN REACH. WILL CONTINUE TO MONITOR.
[2019-09-16] MEDS: SIMVASTATIN 20 MG TAB PO SCH (21:04)
[2019-09-16] MEDS: INSULIN LISPRO SLIDING SCALE 100 UNITS/ML VIAL SUBQ PRN (21:13)
--- NOTE | 2019-09-16 21:15 | NUR ---
PATIENT LYING IN BED WATCHING TV. SCHEDULED MEDICATIONS GIVEN. BLOOD SUGAR 183. COVERAGE GIVEN. NO SIGNS AND SYMPTOMS OF PAIN AND DISCOMFORT NOTED AT THIS TIME. HELPED PATIENT REPOSITION IN BED. PATIENT KEPT COMFORTABLE. SAFETY MEASURES IN PLACE. BED IN LOW POSITION, SIDE RAILS RAISED, BED ALARM ON, CALL LIGHT WITHIN REACH. WILL CONTINUE TO MONITOR.
[2019-09-16] MEDS ORDERED: CRUSHER, PILL MC ONE (21:32)
--- NOTE | 2019-09-16 23:51 | NUR ---
ROUNDS DONE. PATIENT IN BED WATCHING TV. IVF REPLACED. NO SIGNS AND SYMPTOMS OF DISTRESS NOTED. SAFETY MEASURES IN PLACE. BED IN LOW POSITION, SIDE RAILS RAISED, BED ALARM ON, CALL LIGHT WITHIN REACH. KEPT COMFORTABLE. WILL CONTINUE TO MONITOR.
[2019-09-17] VITALS: BP 114/70
--- NOTE | 2019-09-17 02:07 | NUR ---
PATIENT IN BED SLEEPING. RESPIRATIONS EVEN AND UNLABORED. IVF INFUSING WELL. NO S/SX OF PAIN OR DISCOMFORT AT THIS TIME. KEPT COMFORTABLE. SAFETY MEASURES IN PLACE. BED IN LOW POSITION, SIDE RAILS RAISED, BED ALARM ON, CALL LIGHT WITHIN REACH. WILL CONTINUE TO MONITOR.
[2019-09-17] MEDS: BLOOD GLUCOSE MONITORING 1 DEV DEV FS SCH ×4 (05:40→20:13)
--- NOTE | 2019-09-17 05:40 | NUR ---
BLOOD SUGAR 121. NO COVERAGE NEEDED. PATIENT AWAKE IN BED RESTING. NO S/SX OF DISTRESS NOTED. HELPED REPOSITION HIMSELF. SAFETY PRECAUTION OBSERVED. BED IN LOW POSITION, SIDE RAILS UP, BED ALARM ON, CALL LIGHT WITHIN REACH. KEPT COMFORTABLE. IVF INFUSING WELL. WILL CONTINUE TO MONITOR.
--- NOTE | 2019-09-17 07:05 | NUR ---
ENDORSED PATIENT TO DAY SHIFT NURSE. PLAN OF CARE DISCUSSED. PATIENT IN STABLE CONDITION. IVF INFUSING WELL. NO COMPLAINS MADE. KEPT COMFORTABLE. SAFETY MEASURES IN PLACE.
--- NOTE | 2019-09-17 07:06 | NUR ---
Report received from pm nurse Tyrel. Pt resting in bed, no signs of distress, respirations even & nonlabored in room air. Left forearm IV 20G intact with ongoing NS @ 100ml/h. Call light within reach.
[2019-09-17 08:00] VITALS: BP 109/66
--- NOTE | 2019-09-17 08:45 | NUR ---
Per organic chemist, unable to draw blood d/t pt is hardstick. Plate Conditioner to attempt again later.
[2019-09-17] MEDS: FINASTERIDE 5 MG TAB PO SCH (09:12)
[2019-09-17] MEDS: LACTOBACILLUS RHAMNOSUS GG 1 EACH CAP PO SCH (09:12)
[2019-09-17] MEDS: PANTOPRAZOLE 40 MG TABEC PO SCH (09:12)
[2019-09-17] MEDS: FERROUS SULFATE 325 MG TABEC PO SCH (09:12)
[2019-09-17] MEDS: DOCUSATE SODIUM 100 MG GELCAP PO SCH ×2 (09:13→20:15)
[2019-09-17] MEDS: ASCORBIC ACID 500 MG TAB PO SCH ×2 (09:13→20:16)
[2019-09-17] MEDS: SODIUM CHLORIDE 1 GM TAB PO SCH (09:13)
--- NOTE | 2019-09-17 14:22 | NUR ---
DISCHARGE PLANNING: THIS IS AN 88 Y/O MALE PATIENT FROM [facility], WHO WAS BROUGHT IN DUE TO ALTERED LEVEL OF CONSCIOUSNESS X1 DAY. PAST MEDICAL HISTORY INCLUDE BLADDER CA WITH BILATERAL NEPHROSTOMY TUBES, HTN, DIABETES, AFIB, CKD, HLD AND AND GERD. INITIAL DIAGNOSIS OF ALTERED LEVEL OF CONSCIOUSNESS AND UTI. CURRENT LABS INCLUDE WBC 10.0, H/H 9.8/29.7, NA/K 138/4.9, BUN/CREA 20/1.6. ON LEVOFLOXACIN. NO CONSULTS AT THIS TIME. DC PLAN PENDING ON PATIENT'S RESPONSE TO TREATMENT. Addendum: 09/18/19 at 1009 by Carolyn Willett CM DC PLANNING: FAXED THE PAPERWORK TO [facility] , WAITING FOR BED AVAILABLE. CALLED THE [facility] LEFT A MESSAGE FOR [facility] TO GET THE AUTH# FOR TRANSPORT. Addendum: 09/18/19 at 1239 by Carolyn Willett CM DC PLANNING: RECEIVED A CALL FROM REJI AT [facility] ACCEPTED PATIENT ,CAN GO TO ROOM 47A UNDER THE CARE OF DR CECILE BURTON. # TO GIVE REPORT [phone] , ARRANGED TRANSPORT WITH [facility] GAMING TABLE OPERATOR TIME 2:30 PM. NOTIFIED JOSE A ARBOLEDA
--- NOTE | 2019-09-17 14:40 | NUR ---
Bending Roll Hand able to draw blood. Lab results pending.
--- NOTE | 2019-09-17 15:04 | NUR ---
Pt asleep, respirations even & nonlabored in room air, FLACC 0. Left forearm IV intact with ongoing NS @100ml/h. Call light within reach. Bed alarm on.
[2019-09-17 16:00] VITALS: BP 114/63
[2019-09-17 16:01] LABS: BASOPHILS % (AUTO) 0.5 % (0.0-2.0); EOSINOPHILS # (AUTO) 0.1 K/uL (0-0.4); EOSINOPHILS % (AUTO) 1.3 % (0.0-4.0); HEMATOCRIT 25.6 % (36-52); HEMOGLOBIN 8.4 g/dL (12.0-18.0); LYMPHOCYTES # (AUTO) 1.3 K/uL (2.0-11.5); LYMPHOCYTES % (AUTO) 18.9 % (20.5-51.1); MEAN CORPUSCULAR HEMOGLOBIN 27 pg (27-31); MEAN CORPUSCULAR HGB CONC 33 g/dL (33-37); MEAN CORPUSCULAR VOLUME 81.9 fL (80-94); MONOCYTES # (AUTO) 0.7 K/uL (0.8-1.0); MONOCYTES % (AUTO) 9.3 % (1.7-9.3); PLATELET COUNT (AUTO) 205 K/uL (140-450); RED BLOOD CELL COUNT(AUTO) 3.13 MIL/uL (4.20-6.10); RED CELL DISTRIBUTION WIDTH 22.1 % (11.6-13.7); WHITE BLOOD COUNT (AUTO) 7.1 K/uL (4.8-10.8)
[2019-09-17] MEDS: NACL 0.9% 1,000 ML IV SCH (16:18)
[2019-09-17 16:32] LABS: ANION GAP 10.6 (8-16); CARBON DIOXIDE 26.6 mmol/L (21-32); CHLORIDE 104 mmol/L (98-107); CREATININE 1.4 mg/dL (0.6-1.3); GLUCOSE 139 mg/dL (74-106); POTASSIUM 4.2 mmol/L (3.5-5.1); SODIUM SERUM 137 mmol/L (136-145); UREA NITROGEN, BLOOD 20 mg/dL (7-18)
--- NOTE | 2019-09-17 19:15 | NUR ---
RECEIVED CHANGE OF SHIFT REPORT FROM PAULO ARBOLEDA. PT IS AWAKE AND ALERT. A&OX3 TO PERSON PLACE AND TIME. NO SIGNS OF DISTRESS. PT IS ABLE TO FOLLOW SIMPLE COMMANDS. GCS=15. LUNG SOUNDS CLEAR, EQUAL RISE AND FALL OF THE CHEST. S1S2 HEARD. +2 RADIAL PULSES FELT. REGULAR RHYTHM. CAP REFILL <3. PT HAS BILATERAL NEPHROSTOMY TUBES DRAINING CLEAR YELLOW URINE. DRESSING FOR NEPHROSTOMY IS DCI. BOWEL SOUNDS HEARD. PT HAS PIV 20 G RIGHT FOREARM THAT IS ASYMPTOMATIC, INTACT, AND PATENT. PT WAS REPOSITIONED. HOB 30 DEGREES. BED IS LOCKED IN LOW POSITION. CALL LIGHT WITHIN REACH. WILL CONTINUE TO MONITOR.
[2019-09-17] MEDS: SIMVASTATIN 20 MG TAB PO SCH (20:15)
[2019-09-17] MEDS: INSULIN LISPRO SLIDING SCALE 100 UNITS/ML VIAL SUBQ PRN (20:21)
--- NOTE | 2019-09-17 21:00 | NUR ---
BLOOD GLUCOSE 165. ADMINISTERED 2U HUMALOG SQ PER PROTOCOL
--- NOTE | 2019-09-17 22:14 | NUR ---
ENDORSED PT TO HERLINDA BURGESS FOR CONTINUITY OF CARE.
--- NOTE | 2019-09-17 22:15 | NUR ---
RECD. RESTING IN BED SLEEPING COMFORTABLY BUT WAKES UP WHEN AWAKEN. A/OX3. RESPIRATION EVEN AND UNLABORED. IV OF NS AT 100 ML/HR INFUSING LEFT FOREARM G20. BILATERAL NEPHROSTOMY TUBES BOTH DRAINING CLEAR YELLOW URINE. SAFETY MEASURES ENFORCED. BED IN THE LOWEST POSITION, BED ON ALARM, CALL LIGHT PLACE NEAR PATIENT AND INSTRUCTED TO USE CALL LIGHT WHEN NEEDING HELP. DENIES PAIN 0/10.
[2019-09-18] VITALS: BP 122/55
--- NOTE | 2019-09-18 00:30 | NUR ---
STILL SLEEPING. VS STABLE.
[2019-09-18] MEDS: NACL 0.9% 1,000 ML IV SCH ×2 (00:39→02:29)
--- NOTE | 2019-09-18 02:00 | NUR ---
SLEEPING COMFORTABLY, NO SOB NOTED.
--- NOTE | 2019-09-18 04:30 | NUR ---
NOTED MODERATE AMOUNT OF BLEEDING FROM THE PENIS. INFORMED DR. NIETO. OUTPUT FROM RIGHT NEPHROSTOMY TUBE - 700 ML, LEFT NEPHROSTOMY TUBE, 100 ML. Addendum: 09/18/19 at 0721 by Nikki Ontiveros LVN CORRECTION: FROM RIGHT NEPHROSTOMY TUBE - 1,100 ML NOT 700 ML.
[2019-09-18] MEDS: BLOOD GLUCOSE MONITORING 1 DEV DEV FS SCH ×2 (05:52→12:17)
--- NOTE | 2019-09-18 07:08 | NUR ---
RECEIVED PT. FROM STREET SPRINKLER NURSEHERLINDA. PT. IS ASLEEP AND IN BED. BILATERAL NEPHROSTOMY IN PLACE. IV ON THE LEFT FOREARM 20G WITH NS RUNNING AT 100ML/HR. PT. IS ON ROOM AIR WITH O2 STAT OF 98%. NO COMPLAINS OF PAIN AND NO SIGNS OF DISTRESS. FALL PRECAUTIONS IN PLACE. CALL LIGHT WITHIN REACH. WILL CONTINUE TO MONITOR.
--- NOTE | 2019-09-18 07:10 | NUR ---
STILL SLEEPING COMFORTABLY IN BED. CONDITION REMAIN STABLE. ENDORSED TO AM SHIFT NURSE FOR CONTINUITY OF CARE.
[2019-09-18 07:25] LABS: BASOPHILS % (AUTO) 0.4 % (0.0-2.0); EOSINOPHILS # (AUTO) 0.1 K/uL (0-0.4); EOSINOPHILS % (AUTO) 1.7 % (0.0-4.0); HEMATOCRIT 28.1 % (36-52); LYMPHOCYTES # (AUTO) 1.8 K/uL (2.0-11.5); LYMPHOCYTES % (AUTO) 22.2 % (20.5-51.1); MEAN CORPUSCULAR HEMOGLOBIN 27 pg (27-31); MEAN CORPUSCULAR HGB CONC 32 g/dL (33-37); MEAN CORPUSCULAR VOLUME 83.2 fL (80-94); MONOCYTES # (AUTO) 0.6 K/uL (0.8-1.0); MONOCYTES % (AUTO) 8.1 % (1.7-9.3); NEUTROPHILS # (AUTO) 5.4 K/uL (1.8-7.7); NEUTROPHILS % (AUTO) 67.6 % (42.2-75.2); PLATELET COUNT (AUTO) 209 K/uL (140-450); RED BLOOD CELL COUNT(AUTO) 3.38 MIL/uL (4.20-6.10); RED CELL DISTRIBUTION WIDTH 22.7 % (11.6-13.7)
[2019-09-18 07:47] LABS: ANION GAP 10.5 (8-16); CARBON DIOXIDE 27.8 mmol/L (21-32); CHLORIDE 105 mmol/L (98-107); CREATININE 1.5 mg/dL (0.6-1.3); GLUCOSE 117 mg/dL (74-106); POTASSIUM 4.3 mmol/L (3.5-5.1); SODIUM SERUM 139 mmol/L (136-145); UREA NITROGEN, BLOOD 21 mg/dL (7-18)
[2019-09-18 08:00] VITALS: BP 126/70
[2019-09-18] MEDS ORDERED: LEVO750T2 IV (08:21)
[2019-09-18] MEDS: PANTOPRAZOLE 40 MG TABEC PO SCH (10:24)
[2019-09-18] MEDS: FERROUS SULFATE 325 MG TABEC PO SCH (10:25)
[2019-09-18] MEDS: SODIUM CHLORIDE 1 GM TAB PO SCH (10:25)
[2019-09-18] MEDS: LACTOBACILLUS RHAMNOSUS GG 1 EACH CAP PO SCH (10:25)
[2019-09-18] MEDS: ASCORBIC ACID 500 MG TAB PO SCH (10:25)
[2019-09-18] MEDS: FINASTERIDE 5 MG TAB PO SCH (10:25)
[2019-09-18] MEDS: LEVOFLOXACIN 750 MG/D5W PREMIX 150 ML IV SCH (10:25)
[2019-09-18] MEDS: DOCUSATE SODIUM 100 MG GELCAP PO SCH (10:26)
--- NOTE | 2019-09-18 10:30 | NUR ---
MORNING MEDICATIONS GIVEN. NO SIGNS OF DISTRESS NOTED. WILL CONTINUE TO MONITOR.
--- NOTE | 2019-09-18 11:20 | NUR ---
EMPTIED NEPHROSTOMY BAG, PT. IS STILL ASLEEP AND SHOWS NO SIGNS OF DISTRESS. WILL CONTINUE TO MONITOR.
--- NOTE | 2019-09-18 12:50 | NUR ---
PT. IS DISCHARGED AND TRANSPORTED BY [facility] TO [facility]. NO SIGNS OF DISTRESS NOTED. DISCHARGED PAPERS SIGNED AND DISCHARGED INSTRUCTIONS GIVEN.
[2019-09-18 12:58] VITALS: BP 126/70
[2019-09-19 08:09] LABS: FOLIC ACID 9.4 ng/mL (>3.0)
== END 2019-09-18 14:35 | DRG 70 ==
LOC: MED 18:11 → MTU 22:22
PROVIDERS: ADMIT General Practice; ATTEND General Practice
DX: G93.41 Metabolic encephalopathy (principal); N17.0 Acute kidney failure with tubular necrosis; N39.0 Urinary tract infection, site not specified; E44.0 Moderate protein-calorie malnutrition; B40.0 Acute pulmonary blastomycosis; Z68.26 Body mass index [BMI] 26.0-26.9, adult; E11.69 Type 2 diabetes mellitus with other specified complication; I48.91 Unspecified atrial fibrillation; Z93.6 Other artificial openings of urinary tract status; D64.9 Anemia, unspecified; E78.5 Hyperlipidemia, unspecified; K21.9 Gastro-esophageal reflux disease without esophagitis; Z85.51 Personal history of malignant neoplasm of bladder; N18.9 Chronic kidney disease, unspecified; I12.9 Hypertensive chronic kidney disease with stage 1 through stage 4 chronic kidney disease, or unspecified chronic kidney disease; Z88.5 Allergy status to narcotic agent; Z56.0 Unemployment, unspecified; E02 Subclinical iodine-deficiency hypothyroidism; E11.22 Type 2 diabetes mellitus with diabetic chronic kidney disease
CPT/HCPCS: 36415; 70450; 71045; 80048; 80053; 80305; 81001; 82140; 82150; 82550; 82607; 82728; 82746; 82948; 83540; 83605; 83690; 83735; 83880; 84100; 84439; 84443; 84484; 85025; 85045; 85610; 85730; 87040; 87081; 87086; 87186; 93005; 96365; 99285; G0480; G0482; J0696; J1644; J1956; J7030; Q0092

== ENCOUNTER 2019-10-10 04:00 | Emergency (ER) | payer OTHER ==
[~2019-10-10] VITALS: Ht 160 cm; Wt 63.5 kg
[~2019-10-10 04:00] MED LIST changes: -AMOX-999 PO; -FER325 PO; +FERR325E14 PO; -LACT10CA PO; +LEVO750T2 IV
[2019-10-10 04:07] VITALS: BP 122/81
--- NOTE | 2019-10-10 04:07 | NUR ---
PT BIBA FROM [facility] TO BED 11 NEGATIVE FOR COVID SCREENING
--- NOTE | 2019-10-10 04:17 | NUR ---
88M BIBA FROM [facility] s/p Fall at 230 today, noted R side occipital hematoma. No ALOC, AAOX4, no injury. left and right nephrostomy tubes noted. received report from EMR that left nephrostomy might have shifted. pt is currently in bed with HOB elevated and c/o of R sided hematoma pain 01/28. medhx: metabolic encepalopathy, complicated UTIs, dm, nephropathy, a.fib, htn, bladder cancer, gerd, hypothyroidism rx: refer to pt. chart.
--- NOTE | 2019-10-10 04:30 | NUR ---
DR JEFFREY AT BEDSIDE EVALUATING PATIENT.
[2019-10-10] MEDS ORDERED: ACETAMINOPHEN EXTRA STRENGTH 500 MG TAB PO ONE (04:35)
--- NOTE | 2019-10-10 04:38 | NUR ---
MEDICATED WITH TYLENOL
--- NOTE | 2019-10-10 04:43 | NUR ---
PT TRANSFER TO CT VIA [facility].
--- NOTE | 2019-10-10 05:11 | NUR ---
DR SELF NOTIFIED OF POSSIBLE DISLODGEMENT OF LEFT NEPHROSTOMY TUBE.
--- NOTE | 2019-10-10 06:39 | NUR ---
PT REPORT GIVEN TO ROBLES WILD FOR THIS PT AT [facility]. ETA FOR THE AMBULANCE IS 9:00 AM.
--- NOTE | 2019-10-10 07:32 | NUR ---
PT RESTING IN BED, EYES OPEN SPONTANEOUSLY.
[2019-10-10] MEDS ORDERED: NEOMYCIN/POLYMYXIN/BACITRACIN 0.9 GM/1 PKT TP ONE (07:35)
--- NOTE | 2019-10-10 09:15 | NUR ---
Patient discharged with v/s stable. Written and verbal after care instructions given and explained. Patient verbalized understanding. [facility] with to [facility]. All questions addressed prior to discharge. Advised to follow up with PMD.
[2019-10-10 09:17] VITALS: BP 108/57
== END 2019-10-10 09:15 | disposition home or self-care (01) ==
LOC: MED 04:00
DX: S09.90XA Unspecified injury of head, initial encounter (principal); E11.9 Type 2 diabetes mellitus without complications; I10 Essential (primary) hypertension; Z98.890 Other specified postprocedural states; Z79.899 Other long term (current) drug therapy; Z79.4 Long term (current) use of insulin; Z88.8 Allergy status to other drugs, medicaments and biological substances; Z85.51 Personal history of malignant neoplasm of bladder; X58.XXXA Exposure to other specified factors, initial encounter; Y93.89 Activity, other specified; Y92.89 Other specified places as the place of occurrence of the external cause; Y99.8 Other external cause status
CPT/HCPCS: 70450; 72125; 99285

== ENCOUNTER 2019-10-21 04:44 | Inpatient (IN) | payer OTHER ==
[~2019-10-21] VITALS: Ht 154.9 cm; Wt 64.4 kg
[2019-10-21 04:46] VITALS: BP 112/73
--- NOTE | 2019-10-21 04:54 | NUR ---
Pt to bed 6, Dr Nunez at the bedside examining the pt. Pt on DNR status per POLST.
--- NOTE | 2019-10-21 04:57 | NUR ---
88 YO MALE BIBA FROM [facility] FOR NEPHROSTOMY TUBE PROBLEMS. PT HAS LEAKAGE ON RIGHT SIDE AND DISLODGED ON RIGHT SIDE.
[2019-10-21] MEDS ORDERED: NACL 0.9% 500 ML IV ONE (05:00)
[2019-10-21] MEDS ORDERED: HYDROcodone/APAP 7.5/325 MG 1 TAB PO PRN (05:25)
[2019-10-21] MEDS ORDERED: ACETAMINOPHEN 325 MG TAB PO PRN (05:25)
[2019-10-21] MEDS ORDERED: ONDANSETRON 4 MG/2 ML VIAL IVP PRN (05:25)
[2019-10-21 05:34] LABS: BASOPHILS % (AUTO) 0.5 % (0.0-2.0); EOSINOPHILS # (AUTO) 0.1 K/uL (0-0.4); EOSINOPHILS % (AUTO) 1.6 % (0.0-4.0); HEMATOCRIT 27.4 % (36-52); HEMOGLOBIN 8.9 g/dL (12.0-18.0); LYMPHOCYTES # (AUTO) 1.8 K/uL (2.0-11.5); LYMPHOCYTES % (AUTO) 19.5 % (20.5-51.1); MEAN CORPUSCULAR HEMOGLOBIN 27 pg (27-31); MEAN CORPUSCULAR HGB CONC 32 g/dL (33-37); MEAN CORPUSCULAR VOLUME 83.9 fL (80-94); MONOCYTES # (AUTO) 0.9 K/uL (0.8-1.0); MONOCYTES % (AUTO) 9.9 % (1.7-9.3); NEUTROPHILS # (AUTO) 6.5 K/uL (1.8-7.7); NEUTROPHILS % (AUTO) 68.5 % (42.2-75.2); PLATELET COUNT (AUTO) 251 K/uL (140-450); RED BLOOD CELL COUNT(AUTO) 3.26 MIL/uL (4.20-6.10); WHITE BLOOD COUNT (AUTO) 9.4 K/uL (4.8-10.8)
--- NOTE | 2019-10-21 06:06 | NUR ---
XRAY AT BEDSIDE
[2019-10-21 06:08] LABS: PROTHROMBIN TIME 9.2 secs (10.8-13.4)
[2019-10-21 06:50] LABS: ALBUMIN 3.1 g/dL (3.4-5.0); ANION GAP 13.4 (8-16); ASPARTATE AMINOTRANSFERASE 20 U/L (15-37); CARBON DIOXIDE 25.7 mmol/L (21-32); CHLORIDE 101 mmol/L (98-107); CREATININE 1.7 mg/dL (0.6-1.3); GLUCOSE 125 mg/dL (74-106); POTASSIUM 4.1 mmol/L (3.5-5.1); SODIUM SERUM 136 mmol/L (136-145); TOTAL BILIRUBIN 0.3 mg/dL (0.0-1.0); UREA NITROGEN, BLOOD 27 mg/dL (7-18)
[2019-10-21 07:00] LABS: CHOL/HDL RATIO 4.8 (1-4.5); MAGNESIUM 2.2 mg/dL (1.8-2.4); PHOSPHORUS 3.5 mg/dL (2.5-4.9); THYROID STIMULATING HORMONE 4.66 uIU/mL (0.34-3.74)
--- NOTE | 2019-10-21 07:10 | NUR ---
PT ADMITTED TO FLOOR, PT BROUGHT FROM ED IN [facility] ESCORTED BY ED NURSE. REPORT GIVEN TO ME AND DAYSHIFT NURSE. I OBTAINED INITIALS VITALS FOR AM NURSE AND PROVIDED THEM TO HER. PT AWAKE AND ALERT APPEARS TO BE IN STABLE CONDITION. NO SIGNS OF DISTRESS NOTED.
--- NOTE | 2019-10-21 07:10 | NUR ---
RECEIVED REPORT FROM ER NURSE DAMIÁN-ROBLES. PT ARRIVED TO UNIT VIA GURNEY. ASSISTED WITH TRANSFERRING TO BED. PT NOW RESTING IN BED, AOX3- NURSE STATED HE WAS NON-VERBAL. PT STATED HE SPEAKS URDU AND BELARUSIAN, AND A LITTLE ESTONIAN. PT HAS R/L NEPHROSTOMY TUBES, LEFT NEPHROSTOMY TUBE DISLODGED. IV SITE LEFT AC #20G. SKIN INTACT WEARING DRY DIAPER [place] [facility] DISCUSSED PLAN OF CARE AND PT VERBALIZED UNDERSTANDING. NO S/S OF RESPIRATORY DISTRESS OR DISCOMFORT NOTED AT THIS TIME. WILL CONTINUE TO MONITOR.
[2019-10-21 07:15] VITALS: BP 111/73
--- NOTE | 2019-10-21 07:20 | NUR ---
Patient will be admitted to care of DR DOVER. Admited to [facility]. Will go to room 107A. Belongings list completed. Report to ROBLES CASTILLO.
[2019-10-21] MEDS: DEXT 5% /NACL 0.9% 1,000 ML IV SCH (08:02)
[2019-10-21] MEDS: FAMOTIDINE 20 MG TAB PO SCH (08:15)
[2019-10-21] MEDS: DOCUSATE SODIUM 100 MG GELCAP PO SCH ×2 (08:15→20:53)
--- NOTE | 2019-10-21 08:15 | NUR ---
SCHEDULED MEDICATIONS GIVEN AND TOLERATED WELL. NO S/S OF RESPIRATORY DISTRESS OR DISCOMFORT NOTED AT THIS TIME. WILL CONTINUE TO MONITOR.
--- NOTE | 2019-10-21 10:00 | NUR ---
PT RESTING IN BED. NO S/S OF RESPIRATORY DISTRESS OR DISCOMFORT NOTED AT THIS TIME. WILL CONTINUE TO MONITOR.
[2019-10-21] MEDS ORDERED: DEXTROSE 50% 50 ML SYR IVP PRN (11:10)
[2019-10-21] MEDS ORDERED: INSULIN LISPRO SLIDING SCALE 100 UNITS/ML VIAL SUBQ PRN (11:10)
--- NOTE | 2019-10-21 11:15 | NUR ---
PT TAKEN BY GUEST SERVICE SUPERVISOR FOR CT SCAN. PT STABLE AT THIS TIME. NO S/S OF RESPIRATORY DISTRESS OR DISCOMFORT NOTED AT THIS TIME. WILL CONTINUE TO MONITOR.
[2019-10-21] MEDS: BLOOD GLUCOSE MONITORING 1 DEV DEV FS SCH ×3 (11:40→20:53)
--- NOTE | 2019-10-21 11:40 | NUR ---
BLOOD GLUCOSE 122- NO NEED FOR INSULIN COVERAGE. NO S/S OF RESPIRATORY DISTRESS OR DISCOMFORT NOTED AT THIS TIME. WILL CONTINUE TO MONITOR.
--- NOTE | 2019-10-21 13:00 | NUR ---
PT CONTINUES TO REST IN BED. NO S/S OF RESPIRATORY DISTRESS OR DISCOMFORT NOTED AT THIS TIME. WILL CONTINUE TO MONITOR.
--- NOTE | 2019-10-21 13:23 | NUR ---
DC PLANNIN YRS OLD MALE PATIENT [place] ADMITTED FROM [facility] [place] WITH A DX OF DISPLACED LEFT NEPHROSTOMY. PT HAS A HISTORY OF BLADDER CA , BILATERAL NEPHROSTOMY TUBE, CKD,DM, A-FIB, HTN AND ANEMIA. CT ABDOMEN SHOWED IRREGULAR WAS THICKENING STARTED ON IVF , URINE AND BLOOD CULTURE PENDING . CONSULTED WITH UROLOGIST WITH DR OVALLE . SCHEDULE TO REPLACE THE NEPHROSTOMY TUBE BY IR. DC PLAN TO GO BACK TO [facility] [place] WHEN STABLE CM TO FOLLOW. Addendum: 10/23/19 at 1104 by Cori De Jesus CM ON ROOM AIR, O2 SAT 94%. CURRENT LABS INCLUDE WBC 9.8, H/H 8.6/26.8, NA/K 136/4.1, BUN/CREA 23/1.6. ON PROTONIX IV. UROLOGIST CONSULT IN PLACE WITH DR. OVALLE. DC PLAN BACK TO [facility] [place] ONCE STABLE. Addendum: 10/24/19 at 1110 by Cori De Jesus CM RECEIVED AN ORDER TO DC BACK TO [facility] [place]. CLINICALS FAXED TO [facility] [place]. NIKKI OF [facility] AUTH AND REJI OF [facility] [place] [place] MADE AWARE. WILL FOLLOW UP. CONTACTED PATIENT'S SON JULIA COTTER AT [phone], NO ANSWER. LEFT MESSAGE. Addendum: 10/24/19 at 1125 by Cori De Jesus CM RECEIVED A CALL BACK FROM PATIENT'S SON HUMBERTO COTTER, DISCUSSED DC PLAN AND IS IN AGREEMENT. IMM LETTER DISCUSSED WELL, NO QUESTIONS ASKED AT THIS TIME. Addendum: 10/24/19 at 1140 by Cori De Jesus CM FRANCISCO JORDAN OF [facility], TRANSPORT AUTH IS [id number]. Addendum: 10/24/19 at 1323 by Cori De Jesus CM PER REJI OF [facility] [place], PATIENT WILL GO TO ROOM 32A UNDER DR. HUBER AND IS REQUESTING AFTER 1999 PICK DUE TO STAFFING. CONTACTED [facility] AT [phone], ABLE TO SPEAK TO BRIAN. SENIOR GENETIC COUNSELOR WILL BE AT 1999. PRIMARY RN AND REJI OF [facility] [place] [place] MADE AWARE.
--- NOTE | 2019-10-21 14:14 | NUR ---
SPOKE WITH DR. TOVAR REGARDING PT C/O HUNGER. ALTHOUGH PT IS INFORMED OF POSSIBLE PENDING SURGERY TO REPAIR THE LEFT NEPHROSTOMY TUBE, PT CONTINUES TO C/O HUNGER REFUSING SURGERY AND WANTING TO GO HOME. DR. TOVAR STATED PT HAS DEMENTIA. NO S/S OF RESPIRATORY DISTRESS OR DISCOMFORT NOTED AT THIS TIME. WILL CONTINUE TO MONITOR.
--- NOTE | 2019-10-21 15:20 | NUR ---
PT HAD A BM. PT NOW EATING IN BED. NO S/S OF RESPIRATORY DISTRESS OR DISCOMFORT NOTED AT THIS TIME. WILL CONTINUE TO MONITOR.
--- NOTE | 2019-10-21 17:30 | NUR ---
PT RESTING IN BED. NO S/S OF RESPIRATORY DISTRESS OR DISCOMFORT NOTED AT THIS TIME. WILL CONTINUE TO MONITOR.
--- NOTE | 2019-10-21 19:00 | NUR ---
175 ML OUTPUT ON RIGHT NEPHROSTOMY TUBE 75 ML ON LEFT NEPHROSTOMY TUBE
--- NOTE | 2019-10-21 19:15 | NUR ---
RECEIVED PATIENT IN STABLE CONDITION FROM AM SHIFT NURSE FOR CONTINUITY OF CARE. RESPIRATIONS EVEN, UNLABORED. SKIN WARM, DRY TO TOUCH. IV SITE TO LEFT FOREARM 22G PATENT/INTACT, INFUSING FLUIDS WELL. NO C/O PAIN. NO S/SX ACUTE DISTRESS. SAFETY PRECAUTIONS IN PLACE. CALL LIGHT WITHIN REACH. WILL CONTINUE TO MONITOR.
--- NOTE | 2019-10-21 19:30 | NUR ---
PT CONTINUES TO REST IN BED. NO S/S OF RESPIRATORY DISTRESS OR DISCOMFORT NOTED AT THIS TIME. WILL CONTINUE TO MONITOR.
[2019-10-21] MEDS: ASCORBIC ACID 500 MG TAB PO SCH (20:53)
[2019-10-21] MEDS: SIMVASTATIN 20 MG TAB PO SCH (20:53)
[2019-10-21] MEDS ORDERED: DOCUSATE SODIUM 100 MG GELCAP PO SCH (21:00)
--- NOTE | 2019-10-21 21:41 | NUR ---
PATIENT AWAKE AND IN STABLE CONDITION. NO C/O PAIN. NO S/SX ACUTE DISTRESS. CALL LIGHT WITHIN REACH. WILL CONTINUE TO MONITOR.
--- NOTE | 2019-10-21 23:05 | NUR ---
MDAE ROUNDS. PATIENT IS ASLEEP AND IN STABLE CONDITION. NO C/O PAIN. NO S/SX ACUTE DISTRESS. CALL LIGHT WITHIN REACH. WILL CONTINUE TO MONITOR.
[2019-10-22] VITALS: BP 114/74
[2019-10-22] MEDS: DEXT 5% /NACL 0.9% 1,000 ML IV SCH (01:21)
--- NOTE | 2019-10-22 01:49 | NUR ---
PATIENT ASLEEP AND IN STABLE CONDITION. NO C/O PAIN. NO S/SX ACUTE DISTRESS. CALL LIGHT WITHIN REACH. WILL CONTINUE TO MONITOR.
--- NOTE | 2019-10-22 03:02 | NUR ---
PATIENT CONTINUES IN STABLE CONDITION. NO C/O PAIN. NO S/SX ACUTE DISTRESS. CALL LIGHT WITHIN REACH. WILL CONTINUE TO MONITOR.
--- NOTE | 2019-10-22 05:20 | NUR ---
PATIENT ASLEEP. NO C/O PAIN. NO S/SX ACUTE DISTRESS. CALL LIGHT WITHIN REACH. WILL CONTINUE TO MONITOR.
[2019-10-22 05:59] LABS: BASOPHILS % (AUTO) 0.3 % (0.0-2.0); EOSINOPHILS # (AUTO) 0.2 K/uL (0-0.4); EOSINOPHILS % (AUTO) 2.3 % (0.0-4.0); HEMATOCRIT 25.4 % (36-52); HEMOGLOBIN 8.3 g/dL (12.0-18.0); LYMPHOCYTES # (AUTO) 1.4 K/uL (2.0-11.5); LYMPHOCYTES % (AUTO) 16.4 % (20.5-51.1); MEAN CORPUSCULAR HEMOGLOBIN 27 pg (27-31); MEAN CORPUSCULAR HGB CONC 33 g/dL (33-37); MEAN CORPUSCULAR VOLUME 84.2 fL (80-94); MONOCYTES % (AUTO) 11.4 % (1.7-9.3); NEUTROPHILS # (AUTO) 6.1 K/uL (1.8-7.7); NEUTROPHILS % (AUTO) 69.6 % (42.2-75.2); PLATELET COUNT (AUTO) 215 K/uL (140-450); RED BLOOD CELL COUNT(AUTO) 3.02 MIL/uL (4.20-6.10); RED CELL DISTRIBUTION WIDTH 18.8 % (11.6-13.7); WHITE BLOOD COUNT (AUTO) 8.8 K/uL (4.8-10.8)
[2019-10-22 06:36] LABS: ANION GAP 14.7 (8-16); CARBON DIOXIDE 24.1 mmol/L (21-32); CHLORIDE 103 mmol/L (98-107); CREATININE 1.7 mg/dL (0.6-1.3); GLUCOSE 123 mg/dL (74-106); POTASSIUM 3.8 mmol/L (3.5-5.1); SODIUM SERUM 138 mmol/L (136-145); UREA NITROGEN, BLOOD 25 mg/dL (7-18)
[2019-10-22 06:42] LABS: MAGNESIUM 2.1 mg/dL (1.8-2.4)
--- NOTE | 2019-10-22 06:49 | NUR ---
PATIENT IN STABLE CONDITION, CALL LIGHT WITHIN REACH. WILL ENDORSE TO AM SHIFT FOR CONTINUITY OF CARE.
--- NOTE | 2019-10-22 07:08 | NUR ---
PATIENT HAS BEEN SCREENED AND CATEGORIZED MODERATE NUTRITION RISK. PATIENT WILL BE SEEN WITHIN 3-5 DAYS OF ADMISSION. 10/23/19-10/25/19 YULIYA CORRAL MS, RDN
[2019-10-22] MEDS: BLOOD GLUCOSE MONITORING 1 DEV DEV FS SCH ×4 (07:30→21:00)
--- NOTE | 2019-10-22 07:38 | NUR ---
RECEIVED PT FROM MACHINE II COREMAKER NURSE. PT IS CURRENTLY SLEEPING WITH NO SIGNS OF DISTRESS NOTED. RESPIRATIONS ARE EVEN AND UNLABORED ON ROOM AIR. SKIN IS INTACT WITH IV PATENT, ASYMPTOMATIC, AND INFUSING PER ORDER. BED IS IN LOW, POSITION WITH CALL LIGHT WITHIN. SAFETY MEASURES IN PLACE AND WILL CONTINUE TO MONITOR.
[2019-10-22] MEDS: NACL 0.9% 1,000 ML IV SCH (09:20)
[2019-10-22] MEDS: SODIUM CHLORIDE 1 GM TAB PO SCH (09:21)
[2019-10-22] MEDS: FAMOTIDINE 20 MG TAB PO SCH (09:21)
[2019-10-22] MEDS: PANTOPRAZOLE 40 MG INJ VIAL IVP SCH (09:21)
[2019-10-22] MEDS: ASCORBIC ACID 500 MG TAB PO SCH ×2 (09:21→21:51)
[2019-10-22] MEDS: DOCUSATE SODIUM 100 MG GELCAP PO SCH ×2 (09:21→21:50)
[2019-10-22] MEDS: FERROUS SULFATE 325 MG TABEC PO SCH (09:21)
[2019-10-22] MEDS: FINASTERIDE 5 MG TAB PO SCH (09:21)
--- NOTE | 2019-10-22 09:34 | NUR ---
MEDICATIONS ADMINISTERED PER ORDER AND TOLERATED WELL. NO COMPLAINTS OF PAIN AT THIS TIME OR SIGNS OF DISTRESS. PT IS CURRENTLY EATING BREAKFAST IN BED SAFETY MEASURES IN PLACE AND WILL CONTINUE TO MONITOR.
--- NOTE | 2019-10-22 11:40 | NUR ---
BLOOD GLUCOSE WAS 141 THEREFORE NO INSULIN COVERAGE WAS NEEDED. PT IS CURRENTLY LAYING IN BED WATCHING TV WITH NO SIGNS OF DISTRESS VIA FLACC-0. SAFETY MEASURES IN PLACE CALL LIGHT WITHIN REACH AND WILL CONTINUE TO MONITOR.
--- NOTE | 2019-10-22 12:39 | NUR ---
PT IS CURRENTLY SLEEPING WITH LUNCH AT BEDSIDE. NO SIGNS OF DISTRESS NOTED. SAFETY MEASURES IN PLACE AND WILL CONTINUE TO MONITOR, CALL LIGHT WITHIN REACH
--- NOTE | 2019-10-22 13:15 | NUR ---
PT IS CURRENTLY SLEEPING WITH NO SIGNS OF DISTRESS NOTED VIA FLACC-0. LUNCH IS CURRENTLY AT BEDSIDE. SAFETY MEASURES INPLACE AND WILL CONTINUE TO MONITOR.
--- NOTE | 2019-10-22 15:50 | NUR ---
PTS SON CALLED AND REQUESTED STATUS UPDATE ON PTS SURGERY. EXPLAINED THAT SURGERY GOT POSTPONED UNTIL TOMORROW AND PT WILL BE NPO AT MIDNIGHT. SON REQUESTED THAT HE BE CALLED WHEN PT RETURNS FROM SURGERY. EXPLAINED TO HIM THAT HE CAN TALK TO PATIENT BECAUSE HE IS ALERT AND ORIENTATED. SON CALLED PTS ROOM AND WAS ABLE TO TALK TO HIM. NO SIGNS OF DISTRESS NOTED AND WILL CONTINUE TO MONITOR.
--- NOTE | 2019-10-22 16:45 | NUR ---
PT BLOOD SUGAR WAS 120 AND NO INSULIN COVERAGE NEEDED PER ORDER PARAMETERS. NO SIGNS OF DISTRESS NOTED VIA FLACC-0. SAFETY MEASURES IN PLACE AND WILL CONTINUE TO MONITOR.
--- NOTE | 2019-10-22 17:25 | NUR ---
HELPED AIDE CHANGE PATIENT. PT HAD SMALL BM AND MINIMAL BLEEDING THROUGH MEATUS. PT DOES NOT COMPLAIN OF PAIN AT THIS TIME AND TOLERATED CHANGE WELL. SAFETY MEASURES INPLACE AND WILL CONTINUE TO MONITOR.
--- NOTE | 2019-10-22 18:47 | NUR ---
PT IS CURRENTLY LAYING DOWN WITH NO SIGNS OF DISTRESS VIA FLACC-0. PT DOES NOT COMPLAIN OF PAIN AT THIS TIME. SAFETY MEASURES IN PLACE AND WILL ENDORSE TO [employer] NURSE FOR CONTINUITY OF CARE.
--- NOTE | 2019-10-22 19:20 | NUR ---
OBTAINED BEDSIDE SHIFT REPORT FROM DAYSHIFT NURSE FOR CONTINUITY OF CARE. PT AWAKE AND ALERT NO SIGNS OF DISTRESS NOTED.. NEPHROSTOMY TUBES ASSESSED. IV SITE ASSESSED AND INTACT. SAFETY MEASURES IN PLACE, BED IN LOW POSITION AND CALL LIGHT WITHIN REACH
[2019-10-22] MEDS ORDERED: SODIUM FERRIC GLUCONATE 12.5 MG/ML AMP IV ONE (21:27)
[2019-10-22] MEDS: SIMVASTATIN 20 MG TAB PO SCH (21:50)
--- NOTE | 2019-10-22 21:50 | NUR ---
OBTAINED A BEDSIDE BS OF 162. I WAS INSTRUCTED TO PLACE PATIENT NPO AFTER MIDNIGHT. PT DID NOT WANT TO DRINK OR EAT ANYTHING SO I ASKED THE PHYSICIAN RESIDENT IF I SHOULD HOLD HIS 2 UNITS. PER MD HOLD INSULIN COVERAGE SINCE THE PATIENT WILL NOT BE EATING AFTER MIDNIGHT
[2019-10-22] MEDS: SODIUM FERRIC GLUCONATE 125 MG in NACL 0.9% 100 ML IV SCH (21:51)
--- NOTE | 2019-10-22 21:51 | NUR ---
ADMINISTERED 2100 MEDICATIONS TO PATIENT. PATIENT TOLERATED WELL. NO SIGNS OF DISTRESS NOTED. RESPIRATIONS EVEN AND UNLABORED ON ROOM AIR. BED IN LOW POSITION AND CALL LIGHT WITHIN REACH.
[2019-10-23] VITALS: BP 113/66
--- NOTE | 2019-10-23 00:30 | NUR ---
ROUNDING, PATIENT RESTING. EASILY AROUSABLE TO SOUND. NO SIGNS OF DISTRESS NOTED. RESPIRATIONS EVEN AND UNLABORED ON RA. BED IN LOW POSITION AND CALL LIGHT WITHIN REACH
--- NOTE | 2019-10-23 02:21 | NUR ---
ROUNDING. PATIENT ASLEEP NO SIGNS OF DISTRESS NOTED CALL LIGHT WITHIN REACH
--- NOTE | 2019-10-23 04:40 | NUR ---
ROUNDING PT RESTING NO SIGNS OF DISTRESS NOTED. SAFETY MEASURES IN PLACE WILL CONTINUE TO MONITOR
[2019-10-23] MEDS: BLOOD GLUCOSE MONITORING 1 DEV DEV FS SCH ×4 (06:03→21:00)
--- NOTE | 2019-10-23 06:03 | NUR ---
OBTAINED BS 103 NO COVERAGE NEEDED. PT AWAKE AND ALERT NO SIGNS OF DISTRESS. SAFETY MEASURES IN PLACE
--- NOTE | 2019-10-23 07:12 | NUR ---
ENDORSED TO DAYSHIFT NURSE FOR CONTINUITY OF CARE. PATIENT IN STABLE CONDITION
--- NOTE | 2019-10-23 07:14 | NUR ---
RECEIVED REPORT FROM NIGHT NURSE PT IS SLEEPING AND STABLE. SAFETY MEASURES IN PLACE , CALL LIGHT WITHIN REACH.
[2019-10-23 07:24] LABS: BASOPHILS % (AUTO) 0.3 % (0.0-2.0); EOSINOPHILS # (AUTO) 0.1 K/uL (0-0.4); EOSINOPHILS % (AUTO) 1.2 % (0.0-4.0); HEMATOCRIT 26.8 % (36-52); HEMOGLOBIN 8.6 g/dL (12.0-18.0); LYMPHOCYTES # (AUTO) 1.7 K/uL (2.0-11.5); LYMPHOCYTES % (AUTO) 17.4 % (20.5-51.1); MEAN CORPUSCULAR HEMOGLOBIN 28 pg (27-31); MEAN CORPUSCULAR HGB CONC 32 g/dL (33-37); MEAN CORPUSCULAR VOLUME 85.2 fL (80-94); MONOCYTES # (AUTO) 1.1 K/uL (0.8-1.0); MONOCYTES % (AUTO) 10.9 % (1.7-9.3); NEUTROPHILS # (AUTO) 6.9 K/uL (1.8-7.7); NEUTROPHILS % (AUTO) 70.2 % (42.2-75.2); PLATELET COUNT (AUTO) 230 K/uL (140-450); RED BLOOD CELL COUNT(AUTO) 3.15 MIL/uL (4.20-6.10); WHITE BLOOD COUNT (AUTO) 9.8 K/uL (4.8-10.8)
[2019-10-23 07:36] LABS: ANION GAP 12.5 (8-16); CARBON DIOXIDE 25.6 mmol/L (21-32); CHLORIDE 102 mmol/L (98-107); CREATININE 1.6 mg/dL (0.6-1.3); GLUCOSE 115 mg/dL (74-106); POTASSIUM 4.1 mmol/L (3.5-5.1); SODIUM SERUM 136 mmol/L (136-145); UREA NITROGEN, BLOOD 23 mg/dL (7-18)
[2019-10-23 07:41] LABS: MAGNESIUM 1.9 mg/dL (1.8-2.4); PHOSPHORUS 3.2 mg/dL (2.5-4.9)
[2019-10-23 08:00] VITALS: BP 110/81
[2019-10-23] MEDS: NACL 0.9% 1,000 ML IV SCH (08:00)
[2019-10-23 08:08] LABS: FOLIC ACID 10.2 ng/mL (>3.0)
[2019-10-23] MEDS: FERROUS SULFATE 325 MG TABEC PO SCH (09:00)
[2019-10-23] MEDS: SODIUM CHLORIDE 1 GM TAB PO SCH (09:00)
[2019-10-23] MEDS: FAMOTIDINE 20 MG TAB PO SCH (09:00)
[2019-10-23] MEDS: PANTOPRAZOLE 40 MG INJ VIAL IVP SCH (09:00)
[2019-10-23] MEDS: DOCUSATE SODIUM 100 MG GELCAP PO SCH ×2 (09:00→21:00)
[2019-10-23] MEDS: FINASTERIDE 5 MG TAB PO SCH (09:00)
[2019-10-23] MEDS: ASCORBIC ACID 500 MG TAB PO SCH ×2 (09:00→21:00)
--- NOTE | 2019-10-23 09:00 | NUR ---
PT PULLED HIS IV AT THIS TIME. WILL CONTINUE TO MONITOR.
--- NOTE | 2019-10-23 09:29 | NUR ---
PT WAS ON RESTRAIN PER MD ORDERS DUE TO PT PULLS OUT TUBES,PULLS OUT DRAINS. NOTIFIES MD OF THE PT BEHAVIOR. WILL CONTINUE TO MONITOR.
--- NOTE | 2019-10-23 11:06 | NUR ---
[employer]ING [employer] NOTE: Basic Screen: Yes High Risk DC Screen Yes Name: JULIA COTTER Home Relationship: SON Pre-Admission Living Arrangements: SNF Other: [facility] Prior ADL Total/Dependent Current Home Health Name/Tel: N/A Current DME/02 Name/Tel: [facility] Current Hospice Name/Tel: N/A Current Dialysis Name/Tel: N/A Healthcare Decision Maker: Next of Kin Other: JULIA COTTER Advance Directive No Physician Orders for Life Sustaining Treatment Form Yes Patient/Family Have Educational Needs No Discipline: Case Mgt/Social Svcs Tentative Discharge Plan/Destination: SNF/ECF Other: [facility] Will require assistance post discharge: No Referred to [facility]: No Tentative Discharge Plan Summary: PATIENT IS AN 88 YEAR OLD MALE ADMITTED FOR DISPLACED NEPHRO. PATIENT HAS PMHX OF BLADDER CANCER W/ BILATERAL NEPHROSTOMY TUBESM, HYPERTENSION, DIABETES, AFIB, DKD, HLD, AND GERD. PATIENT WAS ADMITTED FROM [facility]. SW CONTACTED DEBI FROM [facility] [phone]. PER DEBI, PATIENT IS SKILLED AND IS CURRENTLY ON A BED HOLD. DEBI STATED THAT PATIENT REQUIRES TOTAL ASSISTANCE WITH ADLS AND CAN MAKE NEEDS KNOWN AT BASELINE AND IS ORIENTED TO PLACE. PATIENT'S HCDM IS SON JULIA COTTER [phone]. TENTATIVE DISCHARGE PLAN IS FOR PATIENT TO RETURN TO [facility]. NO FURTHER NEEDS IDENTIFIED. Signature: APRIL LUQUE Date: October 23, 2019 Time: 11:06
[2019-10-23] MEDS ORDERED: fentaNYL 0.05 MG/ML VIAL ONE (12:09)
[2019-10-23] MEDS ORDERED: MIDAZOLAM 2 MG/2 ML VIAL ONE (12:09)
--- NOTE | 2019-10-23 13:09 | NUR ---
PT OUT FOR SURGERY NEPHROSTOMY TUBE REPLACEMENT AT THIS TIME. PT IS STABLE
[2019-10-23] MEDS ORDERED: LIDOCAINE 2% 1000 MG/50 ML VIAL INJ ONE (13:24)
--- NOTE | 2019-10-23 14:35 | NUR ---
PT CAME BACK FROM SURGERY AND VITAL SIGNS CHECK BP 114/70 ND 81 RR 20 AND T 97.8 O2SAT 95. PT IS STABLE. SAFETY MEASURES IN PLACE AND CALL LIGHT WITHIN REACH.
[2019-10-23 16:00] VITALS: BP 121/79
--- NOTE | 2019-10-23 19:10 | NUR ---
ENDORSED TO NIGHT NURSE. PT IS STABLE
--- NOTE | 2019-10-23 19:25 | NUR ---
RECEIVED PT FROM DAY SHIFT NURSE. PT LYING IN BED. RESPIRATIONS ARE EVEN AND UNLABORED ON ROOM AIR. SKIN IS INTACT WITH IV PATENT, ASYMPTOMATIC, AND INFUSING PER ORDER. BED IS IN LOW, POSITION WITH CALL LIGHT WITHIN. SAFETY MEASURES IN PLACE. REVIEWED PLAN OF CARE TO THE PATIENT. WILL CONTINUE TO MONITOR.
[2019-10-23] MEDS: SIMVASTATIN 20 MG TAB PO SCH (21:00)
--- NOTE | 2019-10-23 21:00 | NUR ---
PATIENT REFUSED PO MEDICATIONS FOR 2100. ADMINISTERED FERRLECIT 125 MG IN 0.96 NS IN 100 ML PER MD ORDER. PATIENT ON RESTRAINTS. LEFT PATIENT IN COMFORTABLE POSITION. WILL CONTINUE TO MONITOR. CALL LIGHT WITHIN REACH.
[2019-10-23] MEDS: SODIUM FERRIC GLUCONATE 125 MG in NACL 0.9% 100 ML IV SCH (21:09)
--- NOTE | 2019-10-23 23:32 | NUR ---
CHECKED PATIENT AND IS NOW SLEEPING COMFORTABLY. WILL CONTINUE TO MONITOR.
[2019-10-24] VITALS: BP 108/65
--- NOTE | 2019-10-24 02:35 | NUR ---
PATIENT AWAKE IN BED. ASSESSED FOR RESTRAINTS PROTOCOL. PT REACHING FOR RIGHT NEPHROSTOMY BAG STATING HE DOESN'T NEED IT ANYMORE. NO SIGNS OF INJURIES NOTED. CIRCULATION INTACT. WILL CONTINUE TO MONITOR PATIENT.
--- NOTE | 2019-10-24 04:24 | NUR ---
PATIENT IS SLEEPING WITH NO SIGNS OF DISTRESS NOTED. WILL CONTINUE TO MONITOR.
[2019-10-24] MEDS: BLOOD GLUCOSE MONITORING 1 DEV DEV FS SCH ×3 (05:54→16:20)
--- NOTE | 2019-10-24 06:00 | NUR ---
BLOOD GLUCOSE CHECKED AND CHARTED. NO INSULIN COVERAGE NEEDED. PT AWAKE WITH NO SIGNS OF DISTRESS. NOTED SMALL AMOUNT OF BLOOD DISCHARGE FROM PENIS. NOTIFIED AM MD. PER MD, BLEEDING IS EXPECTED DT NEPH TUBE.
[2019-10-24 06:11] LABS: BASOPHILS % (AUTO) 0.5 % (0.0-2.0); EOSINOPHILS # (AUTO) 0.1 K/uL (0-0.4); EOSINOPHILS % (AUTO) 0.9 % (0.0-4.0); HEMATOCRIT 27.1 % (36-52); HEMOGLOBIN 8.8 g/dL (12.0-18.0); LYMPHOCYTES # (AUTO) 1.6 K/uL (2.0-11.5); LYMPHOCYTES % (AUTO) 14.5 % (20.5-51.1); MEAN CORPUSCULAR HEMOGLOBIN 27 pg (27-31); MEAN CORPUSCULAR HGB CONC 32 g/dL (33-37); MEAN CORPUSCULAR VOLUME 84.7 fL (80-94); MONOCYTES # (AUTO) 1.1 K/uL (0.8-1.0); MONOCYTES % (AUTO) 9.9 % (1.7-9.3); NEUTROPHILS # (AUTO) 8.1 K/uL (1.8-7.7); NEUTROPHILS % (AUTO) 74.2 % (42.2-75.2); PLATELET COUNT (AUTO) 217 K/uL (140-450); WHITE BLOOD COUNT (AUTO) 10.8 K/uL (4.8-10.8)
--- NOTE | 2019-10-24 06:22 | NUR ---
PATIENT LYING IN BED, AWAKE, AND COMFORTABLE. NO SIGNS OF DISTRESS NOTED. WILL ENDORSE PATIENT TO AM SHIFT NURSE FOR CONTINUITY OF CARE.
--- NOTE | 2019-10-24 06:23 | NUR ---
PATIENT LYING IN BED COMFORTABLY. NO SIGNS OF DISTRESS NOTED. WILL ENDORSE PATIENT TO AM SHIFT NURSE FOR CONTINUITY OF CARE.
[2019-10-24 06:43] LABS: ANION GAP 10.2 (8-16); CARBON DIOXIDE 27.5 mmol/L (21-32); CHLORIDE 103 mmol/L (98-107); CREATININE 1.7 mg/dL (0.6-1.3); GLUCOSE 117 mg/dL (74-106); POTASSIUM 4.7 mmol/L (3.5-5.1); SODIUM SERUM 136 mmol/L (136-145); UREA NITROGEN, BLOOD 22 mg/dL (7-18)
--- NOTE | 2019-10-24 07:05 | NUR ---
PATIENT IN BED ASLEEP, EASILY AROUSABLE BY NAME OR TOUCH. RESPIRATION EVEN AND UNLABORED. SKIN WARM AND DRY TO TOUCH. BUE SOFT RESTRAINTS IN PLACE ORDERED FOR NON BEHAVIORAL. NO DISTRESS NOTED. CALL LIGHT WITHIN REACH.
[2019-10-24 08:00] VITALS: BP 107/66
[2019-10-24] MEDS: NACL 0.9% 1,000 ML IV SCH (08:00)
--- NOTE | 2019-10-24 08:18 | NUR ---
PATIENT OFF RESTRAINTS. OBSERVED IV HAS BEEN PULLED OUT. NOTIFIED DR. BERMUDEZ IN REGARDS TO IV, PER . NO IV ACCESS NEEDED AT THIS TIME.
[2019-10-24] MEDS: FERROUS SULFATE 325 MG TABEC PO SCH (08:55)
[2019-10-24] MEDS: ASCORBIC ACID 500 MG TAB PO SCH (08:55)
[2019-10-24] MEDS: PANTOPRAZOLE 40 MG INJ VIAL IVP SCH (08:55)
[2019-10-24] MEDS: DOCUSATE SODIUM 100 MG GELCAP PO SCH (08:55)
[2019-10-24] MEDS: FINASTERIDE 5 MG TAB PO SCH (08:56)
[2019-10-24] MEDS: FAMOTIDINE 20 MG TAB PO SCH (08:56)
[2019-10-24] MEDS: SODIUM CHLORIDE 1 GM TAB PO SCH (08:56)
--- NOTE | 2019-10-24 10:00 | NUR ---
PATIENT REMAINS STABLE. BED IN LOW POSITION. BED ALARM ON. PATIENT AWAKE, VERBALLY RESPONSIVE. NO S/S OF DISTRESS NOTED. CALL LIGHT WITHIN REACH.
--- NOTE | 2019-10-24 12:30 | NUR ---
PATIENT IN BED, EATING LUNCH. NO DISTRESS NOTED.
--- NOTE | 2019-10-24 14:00 | NUR ---
PATIENT IN BED, ASLEEP, EASILY AROUSABLE BY NAME OR TOUCH. NO DISTRESS NOTED.
--- NOTE | 2019-10-24 14:45 | NUR ---
10/24/19 RD INITIAL ASSESSMENT COMPLETED PLEASE REFER TO NUTRITION ASSESSMENT UNDER CARE ACTIVITY FOR ESTIMATED NUTRITIONAL NEEDS. 1. RECOMMEND MECHANICAL CCHO 60GM NA2GM DIET TOLERATED 2. RECOMMEND NEPRO BID 3. RD TO FOLLOW-UP 3-5 DAYS, MODERATE RISK MIL [place], RD
[2019-10-24 16:00] VITALS: BP 106/66
--- NOTE | 2019-10-24 16:00 | NUR ---
PATIENT IN BED, AWAKE, VERBALLY RESPONSIVE. NO DISTRESS NOTED.
--- NOTE | 2019-10-24 18:48 | NUR ---
REPORT GIVEN TO ALEXIA ARBOLEDA FOR CONTINUATION OF CARE. PT WILL DISCHARGE TO [facility] [place].
--- NOTE | 2019-10-24 19:00 | NUR ---
PATIENT IN STABLE CONDITION. WILL ENDORSE TO NIGHT NURSE FOR CONTINUITY OF CARE.
--- NOTE | 2019-10-24 20:30 | NUR ---
TO [facility] VIA AMBULANCE IN STABLE CONDITION.
== END 2019-10-24 20:30 | DRG 698 ==
LOC: MED 04:44 → MTU 05:21
PROVIDERS: ADMIT General Practice; ATTEND General Practice
PROC: 0T25X0Z Change Drainage Device in Kidney, External Approach (ICD-10-PCS; principal; 2019-10-23)
PROC: BT131ZZ Fluoroscopy of Bilateral Kidneys using Low Osmolar Contrast (ICD-10-PCS; 2019-10-23)
DX: T83.022A Displacement of nephrostomy catheter, initial encounter (principal); N17.0 Acute kidney failure with tubular necrosis; E44.0 Moderate protein-calorie malnutrition; E11.65 Type 2 diabetes mellitus with hyperglycemia; Y83.8 Other surgical procedures as the cause of abnormal reaction of the patient, or of later complication, without mention of misadventure at the time of the procedure; Z66 Do not resuscitate; K21.9 Gastro-esophageal reflux disease without esophagitis; I48.91 Unspecified atrial fibrillation; E11.21 Type 2 diabetes mellitus with diabetic nephropathy; N18.9 Chronic kidney disease, unspecified; I12.9 Hypertensive chronic kidney disease with stage 1 through stage 4 chronic kidney disease, or unspecified chronic kidney disease; E11.22 Type 2 diabetes mellitus with diabetic chronic kidney disease; E78.5 Hyperlipidemia, unspecified; N40.0 Benign prostatic hyperplasia without lower urinary tract symptoms; D63.0 Anemia in neoplastic disease; E02 Subclinical iodine-deficiency hypothyroidism; R31.9 Hematuria, unspecified; Z68.26 Body mass index [BMI] 26.0-26.9, adult; Z85.51 Personal history of malignant neoplasm of bladder; Z88.6 Allergy status to analgesic agent; Z79.899 Other long term (current) drug therapy
CPT/HCPCS: 36415; 50432; 71045; 80048; 80053; 82607; 82728; 82746; 82948; 83036; 83540; 83690; 83735; 83880; 84100; 84443; 84484; 85025; 85045; 85610; 85730; 87081; 96360; 99285; C9113; J1815; J2001; J2250; J2916; J3010; J7030; J7042; Q0092

== ENCOUNTER 2019-11-04 19:47 | Emergency (ER) | payer OTHER ==
[~2019-11-04] VITALS: Ht 165.1 cm; Wt 72.6 kg
[2019-11-04 19:51] VITALS: BP 97/68
--- NOTE | 2019-11-04 19:54 | NUR ---
GAVINO [place]. TAKEN TO BED 1
--- NOTE | 2019-11-04 21:06 | NUR ---
PT CAME IN FROM NURSING FACILTY AFTER FALLING OUT OF BED AND HITTING HIS HEAD ON THE FLOOR. DID NOT LOSE CONCIOUSNESS, NO N/V. PT ABLE TO COMMINCATE WITH LIMITED UNDERSTANDING DUE TO UZBEK SPEAKING. PUPILS ARE NORMAL AND REACTIVE, NO WEAKNESS NOTED TO EXTREMITIES. PT AWAKE ALERT AND ORIENTED X 4. RAVI IN LOWEST POSITION AND SIDE RAIL UP X 1 ALLERGY - NSAIDS MEDS - SEE CHART MED HX - DM, BLADDER CA, HLD, GERD, BPH, AAA, HYPOTHYROID, NEPHROSTOMY TUBES
--- NOTE | 2019-11-04 21:30 | NUR ---
PT TAKEN TO CT
--- NOTE | 2019-11-04 22:16 | NUR ---
CT OF HEAD WNL, PT TO RETURN TO FACILITY, [facility]
--- NOTE | 2019-11-04 22:25 | NUR ---
PT FOR D/C PER DR LEVINE ORDER. [facility] ([facility] CALLED AND PT REPORT GIVEN TO REBECA BURNETT ON PROCESS TO CALLING AMBULANCE FOR TRANSFER BACK TO [facility]. RN ASSIGNED TO THIS PT ESTELLE MADE AWARE.
--- NOTE | 2019-11-04 23:09 | NUR ---
PT RESTING COMFORTABLY, NO SIGNS OF DISTRESS NOTED. WAITING FOR TRANSPORT TO [facility]
--- NOTE | 2019-11-04 23:22 | NUR ---
PT REPOSITIONED IN BED.
--- NOTE | 2019-11-05 01:02 | NUR ---
PT SLEEPING AT THIS TIME, NO SIGNS OF DISTRESS NOTED
--- NOTE | 2019-11-05 02:59 | NUR ---
PT SLEEPING, NO DISTRESS NOTED.
--- NOTE | 2019-11-05 06:12 | NUR ---
PT RESTING IN ON GURMANUEL ADVISED WE ARE STILL WAITING FOR TRANSPORT TO RETURN HIM TO [facility]. NO DISTRESS NOTED
--- NOTE | 2019-11-05 06:17 | NUR ---
400ML OF URINE EMPTIED FROM NEPHROSTOMY BAG
--- NOTE | 2019-11-05 07:31 | NUR ---
PT RESTING IN BED. PENDING TRANSFER BACK TO [facility] [place]. CURRENTLY NO ETA
--- NOTE | 2019-11-05 07:53 | NUR ---
ETA FOR [facility] IS APPROX 60 MIN PER ESTELLE ARBOLEDA, ELISEO WHITESIDE RN CALLED [facility] AND NOTIFIED THAT PATIENT WILL BE RETURNING BACK CALLED [facility] MYSELF AND NOTIFIED PTS ETA
[2019-11-05 08:29] VITALS: BP 105/66
--- NOTE | 2019-11-05 08:29 | NUR ---
Patient discharged with v/s stable. Written and verbal after care instructions given and explained REGARDING FALL RISK AND HOME SAFETY AND FALL PREVENTION. Ambulance Transport with [place] [facility] All questions addressed prior to discharge. Advised to follow up with PMD TOMORROW FOR RE-CHECK. [facility] SIGNED DISHCARGE PAPERWORK
== END 2019-11-05 08:30 | disposition home health service (06) ==
LOC: MED 19:47
DX: R51 Headache (principal); E11.9 Type 2 diabetes mellitus without complications; K21.9 Gastro-esophageal reflux disease without esophagitis; I10 Essential (primary) hypertension; E03.9 Hypothyroidism, unspecified; Z85.51 Personal history of malignant neoplasm of bladder; Z98.890 Other specified postprocedural states; Z79.4 Long term (current) use of insulin; Z79.899 Other long term (current) drug therapy; W19.XXXA Unspecified fall, initial encounter; Y93.89 Activity, other specified; Y92.89 Other specified places as the place of occurrence of the external cause; Y99.8 Other external cause status
CPT/HCPCS: 70450; 72125; 99285

== ENCOUNTER 2019-11-30 08:49 | Day surgery (SDC) | payer OTHER ==
[~2019-11-30] VITALS: Ht 165.1 cm; Wt 72.6 kg
[2019-11-30] MEDS ORDERED: LIDOCAINE 1% 500 MG/50 ML VIAL ONE (09:57)
--- NOTE | 2019-11-30 10:51 | NUR ---
DISCHRGE WHEN STABLE Addendum: 11/30/19 at 1052 by Mayuri Rodarte RN Amended: Links added.
== END 2019-11-30 11:20 ==
LOC: MMU 08:49 → MDS 08:49
PROVIDERS: ATTEND Urology
DX: C67.9 Malignant neoplasm of bladder, unspecified (principal); E03.9 Hypothyroidism, unspecified; I48.91 Unspecified atrial fibrillation; E11.9 Type 2 diabetes mellitus without complications; K21.9 Gastro-esophageal reflux disease without esophagitis; I10 Essential (primary) hypertension; Z79.4 Long term (current) use of insulin; Z79.899 Other long term (current) drug therapy; Z79.2 Long term (current) use of antibiotics
CPT/HCPCS: 50435; 76000; C1729; C1769; J2001; Q9965; Q9967

== ENCOUNTER 2019-12-19 13:28 | Emergency (ER) | payer OTHER ==
[~2019-12-19] VITALS: Ht 175.3 cm; Wt 80.7 kg
[~2019-12-19 13:28] MED LIST changes: -ASCO500T45 PO; +ASCO500T95 PO
[2019-12-19 13:30] VITALS: BP 101/67
[2019-12-19 14:55] LABS: BASOPHILS # (AUTO) 0.1 K/uL (0.00-0.22); BASOPHILS % (AUTO) 0.5 % (0.0-2.0); EOSINOPHILS # (AUTO) 0.1 K/uL (0-0.4); EOSINOPHILS % (AUTO) 1.3 % (0.0-4.0); HEMATOCRIT 27.7 % (36-52); HEMOGLOBIN 8.7 g/dL (12.0-18.0); LYMPHOCYTES # (AUTO) 1.4 K/uL (2.0-11.5); LYMPHOCYTES % (AUTO) 14.6 % (20.5-51.1); MEAN CORPUSCULAR HEMOGLOBIN 26 pg (27-31); MEAN CORPUSCULAR HGB CONC 32 g/dL (33-37); MEAN CORPUSCULAR VOLUME 81.3 fL (80-94); MONOCYTES # (AUTO) 0.9 K/uL (0.8-1.0); MONOCYTES % (AUTO) 9.5 % (1.7-9.3); NEUTROPHILS # (AUTO) 7.1 K/uL (1.8-7.7); NEUTROPHILS % (AUTO) 74.1 % (42.2-75.2); PLATELET COUNT (AUTO) 273 K/uL (140-450); RED CELL DISTRIBUTION WIDTH 18.5 % (11.6-13.7); WHITE BLOOD COUNT (AUTO) 9.6 K/uL (4.8-10.8)
[2019-12-19 15:10] LABS: ALBUMIN 2.6 g/dL (3.4-5.0); ASPARTATE AMINOTRANSFERASE 55 U/L (15-37); CARBON DIOXIDE 25.4 mmol/L (21-32); CHLORIDE 100 mmol/L (98-107); CREATININE 1.4 mg/dL (0.6-1.3); GLUCOSE 111 mg/dL (74-106); POTASSIUM 4.4 mmol/L (3.5-5.1); SODIUM SERUM 134 mmol/L (136-145); TOTAL BILIRUBIN 0.2 mg/dL (0.0-1.0); UREA NITROGEN, BLOOD 32 mg/dL (7-18)
[2019-12-19 16:15] LABS: APPEARANCE,URINE CLOUDY (CLEAR); BILIRUBIN,URINE NEGATIVE (NEGATIVE); BLOOD, URINE 2+ (NEGATIVE); COLOR,URINE YELLOW (YELLOW); LEUKOCYTE ESTERASE ,URINE 3+ (NEGATIVE); NITRITE, URINE NEGATIVE (NEGATIVE); UGLUCOSE NEGATIVE (NEGATIVE)
[2019-12-19 16:30] LABS: RBC,URINE 20-50 /HPF (0-5); WBC,URINE 80-100 /HPF (0-5)
[2019-12-19 17:38] VITALS: BP 112/75
== END 2019-12-19 17:38 ==
LOC: MED 13:28
DX: R54 Age-related physical debility (principal); E11.9 Type 2 diabetes mellitus without complications; I10 Essential (primary) hypertension; K21.9 Gastro-esophageal reflux disease without esophagitis; R82.71 Bacteriuria; Z86.2 Personal history of diseases of the blood and blood-forming organs and certain disorders involving the immune mechanism; Z85.9 Personal history of malignant neoplasm, unspecified
CPT/HCPCS: 36415; 80053; 81001; 84484; 85025; 87086; 87186; 93005; 99284; 99285